=== PATIENT | female | born 1995 | race Caucasian/White ===

== ENCOUNTER 2017-03-22 06:50 | Emergency (ER) | payer SELFPAY ==
[~2017-03-22] VITALS: Ht 162.6 cm; Wt 59.9 kg
[2017-03-22 07:46] LABS: BILIRUBIN,URINE NEG (NEG); CLARITY,URINE HAZY; COLOR,URINE STRAW; GLUCOSE,URINE NEG (NEG)
[2017-03-22 07:47] LABS: BACTERIA,URINE FEW /HPF (0-FEW); NITRITE,URINE NEG (NEG); RBC,URINE 0 /HPF (0-2); SQUAMOUS EPITHELIAL CELL,UR MANY /LPF; UROBILINOGEN,URINE 0.2 mg/dL (0.2 mg/dL)
--- NOTE | 2017-03-22 08:03 | PHYS DOC ---
General Chief Complaint: BACK PAIN - NO INJURY Stated Complaint: BACK PAIN Time Seen by MD: 07:07 Source: patient Exam Limitations: no limitations Problems: History of Present Illness Initial Comments Patient is a 21-year-old female who comes in the ED complaining of right-sided flank pain. Patient states that for the past week or so she's had intermittent worsening right-sided flank pain. She denies any trauma or strenuous activity, she's also had frequency and hesitancy of urine with some darkening of the color she denies any motor changes. No fever chills sweats or myalgias no pre-arrival treatment patient has had kidney urinary tract infections in the past and symptoms seem similar to her. No nausea vomiting diarrhea or bowel changes. Patient also has pain at her umbilicus. Pains are sharp and intense at times of physical stress, heavy lifting and straining. She denies any pain at rest and when exacerbated symptoms always improved with rest. She denies any palpable mass but has been told it could be a hernia. No nausea vomiting she denies any trauma. ED vital signs are stable. Timing/Duration: week, getting worse Severity/Quality: moderate, aching Location: right flank Radiation: suprapubic Activities at Onset: physical activity, rest Prior Genitourinary Problems: similar symptoms Modifying Factors: worse with coughing, worse with defecating, worse with exercise, improves with lying down, worse with palpation, improves with rest Associated Symptoms: abdominal pain, lower back pain, polyuria, urinary frequency Allergies: Coded Allergies: No Known Drug Allergies (Unverified , 03/22/17) Past Medical History Medical History: other (anxiety, depression, UTI, back pain) Surgical History: noncontributory (wrist) Social History Smoker: cigarettes Alcohol: none Drugs: marijuana Review of Systems Constitutional: denies chills, denies diaphoresis, denies fever, denies malaise Respiratory: denies cough, denies shortness of breath Cardiovascular: denies chest pain, denies palpitations Gastrointestinal: see HPI Genitourinary: see HPI Musculoskeletal: see HPI Psychiatric/Neurological: denies headache, denies numbness, denies paresthesia Physical Exam General Appearance: WD/WN, no apparent distress Neck: non-tender, supple Cardiovascular/Respiratory: normal peripheral pulses, normal breath sounds Gastrointestinal: soft (nondistended, bowel sounds normal, negative Bardales and McBurney. Mild suprapubic tenderness noted no rebound or guarding. 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 Will tx UTI, await C/S. urine preg neg. I discussed prescription and [id number] medications. I discussed outpatient general surgical consultation if hernia symptoms worsen. I discussed signs and symptoms to monitor indications for return and the patient expressed agreement and understanding and her questions were answered. She was advised to discontinue tobacco marijuana abuse Departure Time of Disposition: 07:57 Disposition: 01 HOME, SELF-CARE Diagnosis: pyelonephritis R side, reducible <1cm umbilical he Condition: GOOD Patient Instructions: Pyelonephritis, Adult, [id number], Umbilical Herniorrhaphy Additional Instructions: Off work today, note given. Aggressive hydration with Gatorade or water. [id number] Tylenol and/or ibuprofen as needed. Warm compresses or heating pad to affected area 15 minutes 4-6 times daily followed by gentle stretching. No heavy lifting or strenuous activity until cleared by general surgeon and to avoid making umbilical hernia symptoms worse. Prescription: Bactrim DS, Pyridium 100 mg Take medications with food to avoid abdominal discomfort and nausea. No driving or operating machinery until the effect of the medications given in the emergency department are completely worn off. You will need to follow-up with a primary care doctor in 7-10 days for recheck of her symptoms and to review the urine culture and sensitivity report. You will also need to follow up with a general surgeon for consultation regarding or reducible small umbilical hernia. Per your request ED staff can provide you information regarding the [facility] closet as well as the [facility] to assist you with healthcare costs and access while you are uninsured. Return to ED with new or changing symptoms. ANDRÉS JERNIGAN DO Mar 22, 2017 08:03
[2017-03-22] MEDS ORDERED: PHEN100T82 PO (08:06)
[2017-03-22] MEDS ORDERED: SULF1TAB24 PO (08:06)
[2017-03-22] MEDS ORDERED: HYDROcodone/APAP 7.5/325MG 1 TAB TABLET PO ONE (08:10)
[2017-03-22] MEDS ORDERED: ONDANSETRON ODT 4 MG TAB.RAPDIS PO ONE (08:10)
[2017-03-22 08:15] VITALS: BP 107/66
== END 2017-03-22 08:19 | disposition home or self-care (01) ==
LOC: ER 06:50
DX: N12 Tubulo-interstitial nephritis, not specified as acute or chronic (principal); K42.9 Umbilical hernia without obstruction or gangrene; F41.9 Anxiety disorder, unspecified; F32.9 Major depressive disorder, single episode, unspecified; F17.210 Nicotine dependence, cigarettes, uncomplicated; F12.10 Cannabis abuse, uncomplicated; Z87.440 Personal history of urinary (tract) infections
CPT/HCPCS: 81001; 81025; 87086; 99284; Q0162

== ENCOUNTER 2018-04-15 18:08 | Emergency (ER) | payer OTHER ==
[~2018-04-15] VITALS: Ht 162.6 cm; Wt 65.0 kg
[~2018-04-15 18:08] MED LIST: PHEN100T82 PO; SULF1TAB24 PO
[2018-04-15 18:45] LABS: BILIRUBIN,URINE NEG (NEG); CLARITY,URINE HAZY; COLOR,URINE STRAW; GLUCOSE,URINE NEG (NEG); NITRITE,URINE NEG (NEG); UROBILINOGEN,URINE 0.2 mg/dL (0.2 mg/dL)
[2018-04-15 18:46] LABS: BACTERIA,URINE FEW /HPF (0-FEW); SQUAMOUS EPITHELIAL CELL,UR FEW /LPF; WBC,URINE >40 /HPF (0-4)
[2018-04-15 18:56] LABS: BASO # 0.1 x10^3/uL (0.0-0.2); BASO % 1 % (0-3); EOS # 0.1 x10^3/uL (0.0-0.7); EOS % 1 % (0-3); HEMATOCRIT 40.6 % (36.0-47.0); HEMOGLOBIN 13.7 g/dL (12.0-15.5); LYMPH # 2.5 x10^3/uL (1.0-4.8); LYMPH % 23 % (24-48); MEAN CORPUSCULAR HEMOGLOBIN 29 pg (25-35); MEAN CORPUSCULAR HGB CONC 34 g/dL (31-37); MEAN CORPUSCULAR VOLUME 85 fL (79-100); MONO # 0.7 x10^3/uL (0.0-1.1); MONO % 6 % (0-9); NEUT # 7.8 x10^3uL (1.8-7.7); NEUT % 70 % (31-73); PLATELET COUNT 264 x10^3/uL (140-400); RED BLOOD COUNT 4.79 x10^6/uL (3.50-5.40); RED CELL DISTRIBUTION WIDTH 17.5 % (11.5-14.5); WHITE BLOOD COUNT 11.1 x10^3/uL (4.0-11.0)
[2018-04-15] MEDS ORDERED: IV NORMAL SALINE 1,000ML 1,000 ML IV ONE (19:00)
[2018-04-15] MEDS ORDERED: KETOROLAC 30 MG/ML VIAL. IV ONE (19:00)
--- NOTE | 2018-04-15 19:06 | PHYS DOC ---
Past History Past Medical History: Anxiety, Depression, UTI Past Surgical History: No Surgical History Alcohol Use: Occasionally Drug Use: Marijuana Adult General Chief Complaint Chief Complaint: FLANK PAIN HPI HPI 22-year-old female presents with 2 day history of left flank pain. Patient states that she started have some left flank cramping yesterday evening. She assumed was menstrual cramps that she is starting her menses. Throughout the day today, the patient thought it might be the same kind of cramping, but it has gotten worse throughout the day. She now has pain in the flank at the end of urination. She has had a history of frequent UTIs, but she states this does not feel like that. She's never had flank pain with her UTIs. She has not noticed a change in color or urine. She has no history of kidney stones. There is a family history. Her pain is an 8 out of 10. She is unable to find a comfortable position for very long. She denies fever or chills. Review of Systems Review of Systems Constitutional: Denies fever or chills [] Eyes: Denies change in visual acuity, redness, or eye pain [] HENT: Denies nasal congestion or sore throat [] Respiratory: Denies cough or shortness of breath [] Cardiovascular: No additional information not addressed in HPI [] GI: Denies abdominal pain, nausea, vomiting, bloody stools or diarrhea [] : Dysuria [] Musculoskeletal: Left flank pain[] Integument: Denies rash or skin lesions [] Neurologic: Denies headache, focal weakness or sensory changes [] Endocrine: Denies polyuria or polydipsia [] All other systems were reviewed and found to be within normal limits, except as documented in this note. Current Medications Current Medications Current Medications Medications (Trade) Dose Ordered Sig/Kalyan Start Time Stop Time Status Last Admin Dose Admin Ketorolac Tromethamine (Toradol 30mg Vial) 30 mg 1X ONCE 04/15/18 19:00 04/15/18 19:01 UNV Sodium Chloride 1,000 ml @ 1,000 mls/hr 1X ONCE 04/15/18 19:00 04/15/18 19:59 Allergies Allergies Allergies Coded Allergies Type Severity Reaction Last Updated Verified No Known Drug Allergies 03/22/17 No Physical Exam Physical Exam Constitutional: Well developed, well nourished, no acute distress, uncomfortable , non-toxic appearance. [] HENT: Normocephalic, atraumatic, bilateral external ears normal, oropharynx moist, no oral exudates, nose normal. [] Eyes: PERRLA, EOMI, conjunctiva normal, no discharge. [] Neck: Normal range of motion, no tenderness, supple, no stridor. [] Cardiovascular:Heart rate regular rhythm, no murmur [] Lungs & Thorax: Bilateral breath sounds clear to auscultation [] Abdomen: Bowel sounds normal, soft, no tenderness, no masses, no pulsatile masses. [] Skin: Warm, dry, no erythema, no rash. [] Back: CVA tenderness on the left, moderate. [] Extremities: No tenderness, no cyanosis, no clubbing, ROM intact, no edema. [] Neurologic: Alert and oriented X 3, normal motor function, normal sensory function, no focal deficits noted. [] Psychologic: Affect normal, judgement normal, mood normal. [] Current Patient Data Vital Signs Vital Signs Date Time Temp Pulse Resp B/P (MAP) Pulse Ox O2 Delivery O2 Flow Rate FiO2 04/15/18 18:51 98.2 69 20 99 Room Air Lab Results Laboratory Tests Test 04/15/18 18:26 04/15/18 18:38 Urine Collection Type Unknown Urine Color Straw Urine Clarity Hazy Urine pH 6.5 Urine Specific [place] 1.015 Urine Protein Neg (NEG-TRACE) Urine Glucose (UA) Neg mg/dL (NEG) Urine Ketones (Stick) Neg mg/dL (NEG) Urine Blood Mod (NEG) Urine Nitrite Neg (NEG) Urine Bilirubin Neg (NEG) Urine Urobilinogen Dipstick 0.2 mg/dL (0.2 mg/dL) Urine Leukocyte Esterase Small (NEG) Urine RBC 11-20 /HPF (0-2) Urine WBC >40 /HPF (0-4) Urine Squamous Epithelial Cells Few /LPF Urine Bacteria Few /HPF (0-FEW) White Blood Count 11.1 x10^3/uL (4.0-11.0) H Red Blood Count 4.79 x10^6/uL (3.50-5.40) Hemoglobin 13.7 g/dL (12.0-15.5) Hematocrit 40.6 % (36.0-47.0) Mean Corpuscular Volume 85 fL (79-100) Mean Corpuscular Hemoglobin 29 pg (25-35) Mean Corpuscular Hemoglobin Concent 34 g/dL (31-37) Red Cell Distribution Width 17.5 % (11.5-14.5) H Platelet Count 264 x10^3/uL (140-400) Neutrophils (%) (Auto) 70 % (31-73) Lymphocytes (%) (Auto) 23 % (24-48) L Monocytes (%) (Auto) 6 % (0-9) Eosinophils (%) (Auto) 1 % (0-3) Basophils (%) (Auto) 1 % (0-3) Neutrophils # (Auto) 7.8 x10^3uL (1.8-7.7) H Lymphocytes # (Auto) 2.5 x10^3/uL (1.0-4.8) Monocytes # (Auto) 0.7 x10^3/uL (0.0-1.1) Eosinophils # (Auto) 0.1 x10^3/uL (0.0-0.7) Basophils # (Auto) 0.1 x10^3/uL (0.0-0.2) EKG EKG [] Radiology/Procedures Radiology/Procedures [] Impressions: EXAM: CT ABDOMEN/PELVIS WITHOUT CONTRAST. HISTORY: Left flank pain. TECHNIQUE: Computed tomography of the abdomen and pelvis was performed without intravenous contrast. COMPARISON: None. FINDINGS: Lung windows through the visualized portions of the bases reveal minimal atelectasis. Bone windows reveal no suspicious lesions. There is urothelial thickening along the left ureter. There are no left renal or ureteral calculi. A right renal calculus measures 3 mm. There is also mild urothelial thickening on the right. There is mild diffuse bladder wall thickening. A small amount of free pelvic fluid is likely physiologic. The uterus and ovaries are unremarkable by noncontrast CT. The appendix is not inflamed. There is no small bowel obstruction. The liver, gallbladder, pancreas, adrenal glands and spleen are unremarkable. There are no pathologically enlarged lymph nodes. IMPRESSION: 1. Urothelial thickening along the left greater than right ureters. Bladder wall thickening. Correlate for ascending infection. No hydronephrosis. 2. 3 mm right renal calculus. No ureteral calculi. *One or more of the following individualized dose reduction techniques were utilized for this examination: 1. Automated exposure control. 2. Adjustment of the mA and/or kV according to patient size. 3. Use of iterative reconstruction technique. Electronically signed by: Lesa Rodriguez MD (04/15/2018 8:18 PM) [facility] DICTATED AND SIGNED BY: STELLA RODRIGUEZ MD DATE: 04/15/182013 CC: XIN CHAUDHARI DO; ANTHONY GARY ~ Course & Med Decision Making Course & Med Decision Making Pertinent Labs and Imaging studies reviewed. (See chart for details) Patient appears to have a complicated bladder section that is starting to move up the ureters. I will treat her as though it is uncomplicated pyelonephritis. I 'll give 1 g of Rocephin in the ED followed by 5 days of levofloxacin 750 mg at home. [] Dragon Disclaimer Dragon Disclaimer This electronic medical record was generated, in whole or in part, using a voice recognition dictation system. Departure Departure: Referrals: ANTHONY GARY (PCP) Scripts Levofloxacin (LEVOFLOXACIN) 750 Mg Tablet 1 TAB PO DAILY, #5 TAB Prov: XIN CHAUDHARI DO 04/15/18 XIN CHAUDHARI DO Apr 15, 2018 19:06
[2018-04-15 19:10] LABS: ALBUMIN 4.2 g/dL (3.4-5.0); ALBUMIN/GLOBULIN RATIO 1.1 (1.0-1.7); CALCIUM 9.6 mg/dL (8.5-10.1); GFR 68.1; POTASSIUM 3.9 mmol/L (3.5-5.1); TOTAL BILIRUBIN 0.2 mg/dL (0.2-1.0); TOTAL PROTEIN 8.2 g/dL (6.4-8.2)
[2018-04-15 19:33] LABS: U PREG PATIENT NEGATIVE (NEG)
--- NOTE | 2018-04-15 20:21 | RAD ---
EXAM: CT ABDOMEN/PELVIS WITHOUT CONTRAST. HISTORY: Left flank pain. TECHNIQUE: Computed tomography of the abdomen and pelvis was performed without intravenous contrast. COMPARISON: None. FINDINGS: Lung windows through the visualized portions of the bases reveal minimal atelectasis. Bone windows reveal no suspicious lesions. There is urothelial thickening along the left ureter. There are no left renal or ureteral calculi. A right renal calculus measures 3 mm. There is also mild urothelial thickening on the right. There is mild diffuse bladder wall thickening. A small amount of free pelvic fluid is likely physiologic. The uterus and ovaries are unremarkable by noncontrast CT. The appendix is not inflamed. There is no small bowel obstruction. The liver, gallbladder, pancreas, adrenal glands and spleen are unremarkable. There are no pathologically enlarged lymph nodes. IMPRESSION: 1. Urothelial thickening along the left greater than right ureters. Bladder wall thickening. Correlate for ascending infection. No hydronephrosis. 2. 3 mm right renal calculus. No ureteral calculi. *One or more of the following individualized dose reduction techniques were utilized for this examination: 1. Automated exposure control. 2. Adjustment of the mA and/or kV according to patient size. 3. Use of iterative reconstruction technique. Electronically signed by: Lesa Rodriguez MD (04/15/2018 8:18 PM) [facility]
[2018-04-15] MEDS ORDERED: cefTRIAXone SODIUM 1 GM VIAL IV ONE (20:54)
[2018-04-15] MEDS ORDERED: IV NORMAL SALINE 50ML 50 ML ONE (20:54)
[2018-04-15] MEDS ORDERED: ONDANSETRON PF 4 MG/2 ML VIAL. IV ONE (21:15)
[2018-04-15] MEDS ORDERED: MORPHINE SULFATE 2 MG/ML DISP.SYRIN. IV ONE (21:15)
[2018-04-15] MEDS ORDERED: LEVO750T5 PO (21:16)
[2018-04-15 21:23] VITALS: BP 115/77
== END 2018-04-15 21:40 | disposition home or self-care (01) ==
LOC: ER 18:08
DX: N12 Tubulo-interstitial nephritis, not specified as acute or chronic (principal); N20.0 Calculus of kidney; Z87.440 Personal history of urinary (tract) infections
CPT/HCPCS: 36415; 74176; 80053; 81001; 81025; 85025; 87086; 96365; 96375; 99285; J0696; J1885; J2270; J2405; J7030

== ENCOUNTER 2018-11-15 22:18 | Emergency (ER) | payer OTHER ==
[~2018-11-15] VITALS: Ht 162.6 cm; Wt 67.0 kg
[2018-11-15 22:18] VITALS: BP 133/80
[~2018-11-15 22:18] MED LIST changes: +LEVO750T5 PO
[2018-11-15] MEDS ORDERED: D-ME118S2 PO (22:43)
[2018-11-15] MEDS ORDERED: MELO7.5T29 PO (22:43)
[2018-11-15] MEDS ORDERED: AMOX500C PO (22:43)
--- NOTE | 2018-11-15 22:43 | PHYS DOC ---
Past History Past Medical History: Anxiety, Depression, UTI Past Surgical History: No Surgical History Smoking: Cigarettes Alcohol Use: Occasionally Drug Use: Marijuana Adult General Chief Complaint Chief Complaint: SORE THROAT HPI HPI Patient is a 23-year-old female who presents with sore throat, right ear d iscomfort, and a headache. This has been present for the past 5 days to a week. Patient was exposed to sick family members who had similar symptoms. The family members' strep screens were negative. Patient notes that she has some sinus congestion and a cough, worse with laying down. She felt hot several days ago but has not taken her own temperature. She has tried Excedrin Migraine without any significant relief.[] Review of Systems Review of Systems Constitutional: Denies chills or weight loss [] Eyes: Denies change in visual acuity, redness, or eye pain [] HENT: See history of present illness[] Respiratory: Denies shortness of breath [] Cardiovascular: No chest pain or palpitations[] GI: Denies abdominal pain, nausea, vomiting, bloody stools or diarrhea [] : Denies dysuria or hematuria [] Musculoskeletal: Denies back pain or joint pain [] Integument: Denies rash or skin lesions [] Neurologic: Denies focal weakness or sensory changes, notes that she has a headache, similar to her usual chronic migraine, not worst headache of life. [] Endocrine: Denies polyuria or polydipsia [] All other systems were reviewed and found to be within normal limits, except as documented in this note. Allergies Allergies Allergies Coded Allergies Type Severity Reaction Last Updated Verified No Known Drug Allergies 03/22/17 No Physical Exam Physical Exam Constitutional: Well developed, well nourished, no acute distress, non-toxic appearance. [] HENT: Normocephalic, atraumatic, bilateral external ears normal, TMs are clear, oropharynx moist, no oral exudates, uvula is midline, nose normal. [] Eyes: PERRLA, EOMI, conjunctiva normal, no discharge. [] Neck: Normal range of motion, no tenderness, supple, no stridor. [] Cardiovascular:Heart rate regular rhythm, no murmur [] Lungs & Thorax: Bilateral breath sounds clear to auscultation [] Abdomen: Bowel sounds normal, soft, no tenderness, no hepato-or splenomegaly, no pulsatile masses. [] Skin: Warm, dry, no erythema, no rash. [] Back: No tenderness, no CVA tenderness. [] Extremities: No tenderness, no cyanosis, no clubbing, ROM intact, no edema. [] Neurologic: Alert and oriented X 3, normal motor function, normal sensory function, no focal deficits noted. [] Psychologic: Affect normal, judgement normal, mood normal. [] EKG EKG [] Radiology/Procedures Radiology/Procedures [] Course & Med Decision Making Course & Med Decision Making Pertinent Labs and Imaging studies reviewed. (See chart for details) Medical decision making: Patient with upper respiratory infection symptoms. There is no evidence of meningitis, encephalitis, peritonsillar abscess, otitis media, mastoiditis, pneumonia, nor other significant systemic illness. We will attempt symptomatic treatment but prescribed when necessary antibiotics if she is not doing better in 48 hours with the symptomatic care.[] Dragon Disclaimer Dragon Disclaimer This electronic medical record was generated, in whole or in part, using a voice recognition dictation system. Departure Departure: Impression: Primary Impression: Upper respiratory infection Disposition: 01 HOME, SELF-CARE Condition: IMPROVED Referrals: ANTHONY GARY (PCP) Follow-up in 2 days Patient Instructions: Upper Respiratory Infection, Adult Additional Instructions: Drink plenty of fluids. Follow-up with your regular doctor in 2 days. If not doing better in 2 days with the symptomatic treatment, the promethazine DM and meloxicam, start the antibiotics as directed. Return to the ER if worsening discomfort, difficulty breathing, or any other concerns. Scripts Amoxicillin (AMOXICILLIN) 500 Mg Capsule 1 CAP PO TID for pharyngitis, #30 CAP Prov: STEPHIE ALTAMIRANO DO 11/15/18 D-Methorphan Hb/Prometh Hcl (PROMETHAZINE-DM SYRUP) 118 Ml Syrup 5 ML PO PRN Q4HRS for CONGESTION, #120 ML Prov: STEPHIE ALTAMIRANO DO 11/15/18 Meloxicam (MELOXICAM) 7.5 Mg Tablet 7.5 MG PO DAILY for PAIN, #20 TAB Prov: STEPHIE ALTAMIRANO DO 11/15/18 Problem Qualifiers Primary Impression: Upper respiratory infection URI type: unspecified URI Qualified Codes: J06.9 - Acute upper respiratory infection, unspecified STEPHIE ALTAMIRANO DO November 15, 2018 22:43
== END 2018-11-15 22:48 | disposition home or self-care (01) ==
LOC: ER 22:18
DX: J06.9 Acute upper respiratory infection, unspecified (principal); F41.9 Anxiety disorder, unspecified; F32.9 Major depressive disorder, single episode, unspecified; F17.210 Nicotine dependence, cigarettes, uncomplicated; Z87.440 Personal history of urinary (tract) infections
CPT/HCPCS: 99283

== ENCOUNTER 2019-06-30 13:43 | Emergency (ER) | payer SELFPAY ==
[~2019-06-30] VITALS: Ht 162.6 cm; Wt 61.7 kg
[~2019-06-30 13:43] MED LIST changes: +AMOX500C PO; +MELO7.5T29 PO; +PROM118S9 PO
[2019-06-30 14:07] VITALS: BP 114/68
--- NOTE | 2019-06-30 14:11 | PHYS DOC ---
Past History Past Medical History: Anxiety, Depression, UTI Past Surgical History: No Surgical History Smoking: Cigarettes Alcohol Use: Occasionally Drug Use: Marijuana Adult General Chief Complaint Chief Complaint: ABDOMINAL PAIN HPI HPI Patient is a 23-year-old female with midline lower abdominal pain for the past week. It has been getting worse over time. Patient started her menstrual period When this discomfort started. The menses is lightening up, however the pain is getting worse. She had frequency of urination at the onset. This is similar to previous urinary tract infections. She denies any back pain or flank pain like pyelonephritis symptoms in the past. Denies any fever. Notes that she has had some diarrhea without blood in the stool. There is no sick family. She denies any vaginal discharge. No previous abdominal surgeries. She did get relief with acetaminophen but has run out. She denies any hematuria. Pain is moderate to se osman in intensity. There has been no migration of the pain.[] Review of Systems Review of Systems Constitutional: Denies fever or chills [] Eyes: Denies change in visual acuity, redness, or eye pain [] HENT: Denies nasal congestion or sore throat [] Respiratory: Denies cough or shortness of breath [] Cardiovascular: No chest pain or palpitations[] GI: Denies abdominal pain, nausea, vomiting, bloody stools or diarrhea [] : See history of present illness[] Musculoskeletal: Denies back pain or joint pain [] Integument: Denies rash or skin lesions [] Neurologic: Denies headache, focal weakness or sensory changes [] Endocrine: Denies polyuria or polydipsia [] All other systems were reviewed and found to be within normal limits, except as documented in this note. Allergies Allergies Allergies Coded Allergies Type Severity Reaction Last Updated Verified No Known Drug Allergies 03/22/17 No Physical Exam Physical Exam Constitutional: Well developed, well nourished, no acute distress, non-toxic appearance. [] HENT: Normocephalic, atraumatic, bilateral external ears normal, oropharynx moist, no oral exudates, nose normal. [] Eyes: PERRLA, EOMI, conjunctiva normal, no discharge. [] Neck: Normal range of motion, no tenderness, supple, no stridor. [] Cardiovascular:Heart rate regular rhythm, no murmur [] Lungs & Thorax: Bilateral breath sounds clear to auscultation [] Abdomen: Bowel sounds normal, soft, mild suprapubic tenderness, no rebound, no guarding, no rigidity, able to sit up and lie back without any difficulty, no masses, no pulsatile masses. [] Skin: Warm, dry, no erythema, no rash. [] Back: No tenderness, no CVA tenderness. [] Extremities: No tenderness, no cyanosis, no clubbing, ROM intact, no edema. [] Neurologic: Alert and oriented X 3, normal motor function, normal sensory function, no focal deficits noted. [] Psychologic: Affect normal, judgement normal, mood normal. [] EKG EKG [] Radiology/Procedures Radiology/Procedures [] Course & Med Decision Making Course & Med Decision Making Pertinent Labs and Imaging studies reviewed. (See chart for details) Emergency department course: Patient arrived, was placed in bed, and tolerated exam well. She provided urine sample. She was given medicine for pain. After return of laboratory studies, these were discussed with the patient voiced understanding. All questions were answered. She was discharged in improved condition. Medical decision making: There is no evidence of pyelonephritis, no nausea or vomiting. She has urinary tract infection and will treat her with oral outpatient antibiotics. No evidence of systemic toxicity. No evidence of appendicitis, cholecystitis, nor pancreatitis on history or exam.[] Dragon Disclaimer Dragon Disclaimer This electronic medical record was generated, in whole or in part, using a voice recognition dictation system. Departure Departure: Impression: Primary Impression: Urinary tract infection Disposition: 01 HOME, SELF-CARE Condition: IMPROVED Referrals: ANTHONY GARY (PCP) Follow-up in 2 days Patient Instructions: Urinary Tract Infection Additional Instructions: Drink plenty of fluids. Follow-up with your regular doctor. Take the medication as prescribed. Return to the ER if worsening pain, unable to tolerate liquids, or any other concerns. Scripts Phenazopyridine Hcl (PYRIDIUM) 200 Mg Tablet 1 TAB PO TID for urinary discomfort for 2 Days, #6 TAB 0 Refills Prov: STEPHIE ALTAMIRANO DO 06/30/19 Meloxicam (MELOXICAM) 7.5 Mg Tablet 7.5 MG PO DAILY for PAIN, #20 TAB Prov: STEPHIE ALTAMIRANO DO 06/30/19 Cephalexin (KEFLEX) 500 Mg Capsule 500 MG PO QID for UTI for 10 Days, #40 CAP Prov: STEPHIE ALTAMIRANO DO 06/30/19 Problem Qualifiers Primary Impression: Urinary tract infection Urinary tract infection type: site unspecified Hematuria presence: without hematuria Qualified Codes: N39.0 - Urinary tract infection, site not specified STEPHIE ALTAMIRANO DO Jun 30, 2019 14:11
[2019-06-30] MEDS: IBUPROFEN 600 MG TABLET. PO ONE (14:15)
[2019-06-30 14:22] LABS: BACTERIA,URINE FEW /HPF (0-FEW); BILIRUBIN,URINE NEG (NEG); CLARITY,URINE HAZY; COLOR,URINE YELLOW; GLUCOSE,URINE NEG (NEG); NITRITE,URINE NEG (NEG); SQUAMOUS EPITHELIAL CELL,UR MOD /LPF
[2019-06-30] MEDS ORDERED: MELO7.5T29 PO (14:34)
[2019-06-30] MEDS ORDERED: CEPH-264 PO (14:34)
[2019-06-30] MEDS ORDERED: PHEN-318 PO (14:34)
[2019-06-30 14:42] LABS: U PREG PATIENT NEGATIVE (NEG)
== END 2019-06-30 14:45 | disposition home or self-care (01) ==
LOC: ER 13:43
DX: N39.0 Urinary tract infection, site not specified (principal); F41.9 Anxiety disorder, unspecified; F32.9 Major depressive disorder, single episode, unspecified; F17.210 Nicotine dependence, cigarettes, uncomplicated; Z87.440 Personal history of urinary (tract) infections
CPT/HCPCS: 81001; 81025; 87086; 99284

== ENCOUNTER 2019-09-27 18:44 | Emergency (ER) | payer OTHER ==
[~2019-09-27] VITALS: Ht 167.6 cm; Wt 62.0 kg
[~2019-09-27 18:44] MED LIST changes: +CEPH-264 PO; +PHEN-318 PO
[2019-09-27 19:01] VITALS: BP 115/71
--- NOTE | 2019-09-27 19:13 | PHYS DOC ---
Past History Past Medical History: No Pertinent History Past Surgical History: Other Smoking: Cigarettes Alcohol Use: None Drug Use: None Adult General Chief Complaint Chief Complaint: ANIMAL BITE .. " One of our Pit Bulls bit my Rt. arm during a dog fight.. " HPI HPI Patient is a 24 year old female who presents with above hx and complaints puncture wound to right forearm. Injury occurred while attempting to separate pit bulls that were fighting. Reportedly dog vaccination are up-to-date. They are healthy. Patient wound appears to be puncture and surrounding contusion. Distal neurovascular intact. Patient is right-hand dominant. Patient does not remember last tetanus update. Patient denies any history immunosuppression. No history of travel. This is the same incident where her significant partner ( Don Delgado ) was bit the Pit Bull dogs. Review of Systems Review of Systems Constitutional: Denies fever or chills [] Eyes: Denies change in visual acuity, redness, or eye pain [] HENT: Denies nasal congestion or sore throat [] Respiratory: Denies cough or shortness of breath [] Cardiovascular: No additional information not addressed in HPI [] GI: Denies abdominal pain, nausea, vomiting, bloody stools or diarrhea [] : Denies dysuria or hematuria [] Musculoskeletal: Denies back pain or joint pain [The patient complains of dog bite to right forearm Integument: Denies rash or skin lesions [] Neurologic: Denies headache, focal weakness or sensory changes [] Endocrine: Denies polyuria or polydipsia [] All other systems were reviewed and found to be within normal limits, except as documented in this note. Family History Family History Noncontributory Current Medications Current Medications See nursing for home meds Allergies Allergies Allergies Coded Allergies Type Severity Reaction Last Updated Verified No Known Drug Allergies 03/22/17 No Physical Exam Physical Exam Constitutional: Well developed, well nourished, no acute distress, non-toxic appearance. [] HENT: Normocephalic, atraumatic, bilateral external ears normal, oropharynx moist, no oral exudates, nose normal. [] Eyes: PERRLA, EOMI, conjunctiva normal, no discharge. [] Neck: Normal range of motion, no tenderness, supple, no stridor. [] Cardiovascular:Heart rate regular rhythm, no murmur [] Lungs & Thorax: Bilateral breath sounds though apexes few scattered wheezes auscultation [] Abdomen: Bowel sounds normal, soft, no tenderness, no masses, no pulsatile masses. [] Skin: Warm, dry, no erythema, no rash. [] Back: No tenderness, no CVA tenderness. [] Extremities: No tenderness, no cyanosis, no clubbing, ROM intact, no edema. [] Dog bite right forearm.-As per history of present illness Neurologic: Alert and oriented X 3, normal motor function, normal sensory function, no focal deficits noted. [] Psychologic: Affect normal, judgement normal, mood normal. [] Current Patient Data Vital Signs Vital Signs Date Time Temp Pulse Resp B/P (MAP) Pulse Ox O2 Delivery O2 Flow Rate FiO2 09/27/19 19:01 99.3 104 18 115/71 (86) 98 Room Air EKG EKG [] Radiology/Procedures Radiology/Procedures [][address] [address] IMAGING REPORT Signed PATIENT: CODIE KENNEDY ACCOUNT: [id number] : 1995 LOCATION: ER AGE: 24 SEX: F EXAM STATUS: REG ER ORD. PHYSICIAN: JOSEFA ROTH MD REASON: DOG BITE DISTAL FOREARM PROCEDURE: FOREARM RIGHT Exam: Right forearm 2 views INDICATION: Dog bite, distal forearm TECHNIQUE: Frontal and lateral views of the right forearm Comparisons: None FINDINGS: Bone mineralization is normal. No acute or healed fractures. Soft tissues are unremarkable. Joint spaces are well-maintained. IMPRESSION: No acute osseous abnormality. No radiopaque foreign body. Electronically signed by: Betty Albright MD (09/27/2019 8:27 PM) [id number] DICTATED AND SIGNED BY: BETTY ALBRIGHT MD DATE: 09/27/192026 CC: JOSEFA ROTH MD; ANTHONY GARY ~ Course & Med Decision Making Course & Med Decision Making Pertinent Labs and Imaging studies reviewed. (See chart for details) Procedure note- Fidencio cleaned with soap and water. Dressing applied. Patient received a gram of Rocephin and tetanus was updated. Patient take Augmentin 875 twice a day. Follow-up primary care. Return if any concerns. Patient monitor for infection. Pt. not to wear rings on Rt. hand in case of secondary edema. Impression- 1. Dog bite [] Dragon Disclaimer Dragon Disclaimer This electronic medical record was generated, in whole or in part, using a voice recognition dictation system. Departure Departure: Disposition: HOME/RESIDENCE PRIOR TO ADM Condition: STABLE Referrals: ANTHONY GARY (PCP) Scripts Amoxicillin/Potassium Clav (AUGMENTIN 875-125 TABLET) 1 Each Tablet 1 TAB PO BID for dog bite for 7 Days, #14 TAB 0 Refills Prov: JOSEFA ROTH MD 09/27/19 [place] Disclaimer This chart was dictated in whole or in part using Voice Recognition software in a busy, high-work load, and often noisy Emergency Department environment. It may contain unintended and wholly unrecognized errors or omissions. Dragon Disclaimer This chart was dictated in whole or in part using Voice Recognition software in a busy, high-work load, and often noisy Emergency Department environment. It may contain unintended and wholly unrecognized errors or omissions. JOSEFA ROTH MD Sep 27, 2019 19:13
[2019-09-27] MEDS ORDERED: ACETAMINOPHEN 500 MG TABLET PO ONE (20:00)
[2019-09-27] MEDS ORDERED: DIPH,PERTUSS(ACELL),TET VAC/PF 0.5 ML SYRINGE. VAX IM ONE (20:00)
[2019-09-27] MEDS ORDERED: cefTRIAXone IM 1 GM VIAL IM ONE (20:00)
[2019-09-27] MEDS ORDERED: AMOX1TAB61 PO (20:03)
--- NOTE | 2019-09-27 20:30 | RAD ---
Exam: Right forearm 2 views INDICATION: Dog bite, distal forearm TECHNIQUE: Frontal and lateral views of the right forearm Comparisons: None FINDINGS: Bone mineralization is normal. No acute or healed fractures. Soft tissues are unremarkable. Joint spaces are well-maintained. IMPRESSION: No acute osseous abnormality. No radiopaque foreign body. Electronically signed by: Betty Marquis MD (09/27/2019 8:27 PM) [id number]
== END 2019-09-27 21:20 | disposition home or self-care (01) ==
LOC: ER 18:44
DX: S51.851A Open bite of right forearm, initial encounter (principal); F17.210 Nicotine dependence, cigarettes, uncomplicated; W54.0XXA Bitten by dog, initial encounter; Y93.89 Activity, other specified; Y92.89 Other specified places as the place of occurrence of the external cause; Y99.8 Other external cause status
CPT/HCPCS: 73090; 90471; 90715; 96372; 99284; J0696

== ENCOUNTER 2020-01-08 19:24 | Emergency (ER) | payer MEDICAID, OTHER ==
[~2020-01-08] VITALS: Ht 167.6 cm; Wt 57.2 kg
[~2020-01-08 19:24] MED LIST changes: +AMOX1TAB61 PO; +PROM118S10 PO; -PROM118S9 PO
[2020-01-08 19:41] VITALS: BP 126/79
[2020-01-08] MEDS ORDERED: BUTALB/APAP/CAFEIN 50/325/40MG TABLET. PO ONE (19:45)
[2020-01-08] MEDS ORDERED: ONDANSETRON ODT 4 MG TAB.RAPDIS PO ONE (19:45)
[2020-01-08] MEDS ORDERED: DEXAMETHASONE SOD PHOS 10 MG/ML VIAL IM ONE (19:45)
[2020-01-08] MEDS ORDERED: ONDA4TAB12 PO (19:48)
[2020-01-08] MEDS ORDERED: BUTA1TAB23 PO (19:48)
--- NOTE | 2020-01-08 19:48 | PHYS DOC ---
Past History Past Medical History: Anxiety, Depression Past Surgical History: Other Smoking: Cigarettes Alcohol Use: Rarely Drug Use: None General Adult EDM: Chief Complaint: HEADACHE HPI: HPI: Patient is a [age] year old [sex] who presents with [] Review of Systems: Review of Systems: Constitutional: Denies fever or chills Eyes: Denies redness or eye pain HENT: Denies nasal congestion or sore throat Respiratory: Denies cough or shortness of breath Cardiovascular: Denies chest pain or palpitations GI: Denies abdominal pain, nausea, or vomiting : Denies dysuria or hematuria Musculoskeletal: Denies back pain or joint pain Integument: Denies rash or skin lesions Neurologic: Denies headache, focal weakness or sensory changes Complete systems were reviewed and found to be within normal limits, except as documented in this note. Allergies: Allergies: Allergies Coded Allergies Type Severity Reaction Last Updated Verified No Known Drug Allergies 03/22/17 No Physical Exam: PE: Constitutional: Well developed, well nourished, no acute distress, non-toxic appearance HENT: Normocephalic, atraumatic, oropharynx moist Eyes: PERRL, EOMI, conjunctiva normal, no discharge Neck: Normal range of motion, no tenderness, supple Cardiovascular: Heart rate normal, regular rhythm Lungs & Thorax: Bilateral breath sounds clear to auscultation, no wheezing Abdomen: Soft, no tenderness Skin: Warm, dry, no erythema, no rash Back: No tenderness, no CVA tenderness Extremities: No tenderness, ROM intact, no edema Neurologic: Alert and oriented X 3, normal motor function, normal sensory function, no focal deficits noted Psychologic: Affect normal, judgment normal Current Patient Data: Vital Signs: Vital Signs Date Time Temp Pulse Resp B/P (MAP) Pulse Ox O2 Delivery O2 Flow Rate FiO2 01/08/20 19:41 98.2 88 16 126/79 (95) 98 Room Air EKG: EKG: [] Radiology/Procedures: Radiology/Procedures: [] Course & Med Decision Making: Course & Med Decision Making Patient stable for discharge with outpatient follow-up with PCP. Discussed findings and plan with patient and family, who acknowledge understanding and agreement. Siddhartha Disclaimer: Siddhartha Disclaimer: This electronic medical record was generated, in whole or in part, using a voice recognition dictation system. Departure Departure: Impression: Primary Impression: Headache Qualified Codes: R51 - Headache Disposition: 01 HOME/RESIDENCE PRIOR TO ADM Condition: STABLE Referrals: ANTHONY GARY (PCP) Patient Instructions: Headache, FAQs, Migraine Headache, [id number] Scripts Butalb/Acetaminophen/Caffeine ([id number] 50-325-40) 1 Each Tablet 1 EACH PO Q6HRS PRN for HEADACHE, #14 TAB Prov: STEVEN MONIQUE DO 01/08/20 Ondansetron (ONDANSETRON ODT) 4 Mg Tab.rapdis 1 TAB PO PRN Q6-8HRS PRN for NAUSEA, #16 TAB Prov: STEVEN MONIQUE DO 01/08/20 Justification of Admission: Justification of Admission: Justification of Admission Dx: N/A STEVEN MONIQUE DO Jan 08, 2020 19:48
== END 2020-01-08 20:06 | disposition home or self-care (01) ==
LOC: ER 19:24
DX: O26.891 Other specified pregnancy related conditions, first trimester (principal); R51 Headache; O21.9 Vomiting of pregnancy, unspecified; O99.331 Smoking (tobacco) complicating pregnancy, first trimester; Z3A.11 11 weeks gestation of pregnancy
CPT/HCPCS: 96372; 99283; J1100; Q0162

== ENCOUNTER 2020-01-16 05:02 | Emergency (ER) | payer MEDICAID ==
[~2020-01-16] VITALS: Ht 167.6 cm; Wt 57.2 kg
[~2020-01-16 05:02] MED LIST changes: +BUTA1TAB23 PO; +ONDA4TAB12 PO
[2020-01-16 05:05] VITALS: BP 107/75
--- NOTE | 2020-01-16 05:21 | PHYS DOC ---
Past History Past Medical History: Anxiety, Depression (ANDREZ CHENEY DO) Past Surgical History: Other (ANDREZ CHENEY DO) Smoking: Cigarettes Alcohol Use: Rarely Drug Use: None (ANDREZ CHENEY DO) General Adult EDM: Chief Complaint: ABDOMINAL PAIN IN HPI: HPI: Patient is a 24 year old female who presents for evaluation of moderate to severe sharp and sudden mid and lower abdominal discomfort that started at 3:40 AM today. Patient is approximately 12 to 13 weeks . Patient denies any vaginal bleeding or discharge. She had abdominal pain and diarrhea last week. Patient is scheduled to see an [employer] in Dr. Bardales's office later this morning. Patient is a 3 para 2. Patient is due date is August 04, 2020. Patient is in moderate distress on arrival. Patient states she is not had pain like this in this previously. Patient had an early sonogram she states many weeks ago (ANDREZ CHENEY DO) Review of Systems: Review of Systems: Constitutional: Denies fever or chills Eyes: Denies change in visual acuity HENT: Denies nasal congestion or sore throat Respiratory: Denies cough or shortness of breath Cardiovascular: Denies chest pain or edema GI: lower abdominal pain with nausea, no vomiting, no bloody stools, diarrhea last week Musculoskeletal: Denies back pain or joint pain Integument: Denies rash Neurologic: Denies headache, focal weakness or sensory changes Endocrine: Denies polyuria or polydipsia Lymphatic: Denies swollen glands Psychiatric: Denies depression or anxiety (ANDREZ CHENEY DO) Heart Score: Risk Factors: Risk Factors: DM, Current or recent (<one month) smoker, HTN, HLP, family history of CAD, obesity. Risk Scores: Score 0 - 3: 2.5% MACE over next 6 weeks - Discharge Home Score 4 - 6: 20.3% MACE over next 6 weeks - Admit for Clinical Observation Score 7 - 10: 72.7% MACE over next 6 weeks - Early Invasive Strategies (ANDREZ CHENEY DO) Allergies: Allergies: Allergies Coded Allergies Type Severity Reaction Last Updated Verified No Known Drug Allergies 03/22/17 No (ANDREZ CHENEY DO) Physical Exam: PE: Constitutional: Well developed, well nourished, moderate distress, non-toxic appearance. [] HENT: Normocephalic, atraumatic, bilateral external ears normal, oropharynx moist, nose normal. [] Eyes: PERRL, EOMI, conjunctiva normal, no discharge. [] Neck: Normal range of motion, no tenderness, supple, no stridor. [] Cardiovascular:Heart rate tachy but regular rhythm, no murmur [] Lungs & Thorax: Bilateral breath sounds clear to auscultation [] Abdomen: Bowel sounds normal, soft, moderate suprapubic tenderness. [] Skin: Warm, dry, no erythema, no rash. [] Back: No tenderness, no CVA tenderness. [] Extremities: No tenderness, no cyanosis, ROM intact, no edema. [] Neurologic: Alert and oriented, normal motor function, no focal deficits noted. [] Psychologic: Affect normal, judgement normal, anxious mood. 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, tender suprapubic and right adnexal area, white discharge present, no bleeding, os closed [] (ANDREZ CHENEY DO) Current Patient Data: Labs: WET PREP Final YEAST NONE SEEN TRICHOMONAS NONE SEEN CLUE CELLS NONE SEEN WBCS OCCASIONAL RBCS NO RBCS SEEN SQUAMOUS EPS FEW Laboratory Tests Test 01/16/20 05:35 01/16/20 05:45 White Blood Count 9.9 x10^3/uL Red Blood Count 4.31 x10^6/uL Hemoglobin 13.6 g/dL Hematocrit 39.3 % Mean Corpuscular Volume 91 fL Mean Corpuscular Hemoglobin 32 pg Mean Corpuscular Hemoglobin Concent 35 g/dL Red Cell Distribution Width 12.9 % Platelet Count 197 x10^3/uL Neutrophils (%) (Auto) 72 % Lymphocytes (%) (Auto) 21 % Monocytes (%) (Auto) 6 % Eosinophils (%) (Auto) 1 % Basophils (%) (Auto) 1 % Neutrophils # (Auto) 7.1 x10^3uL Lymphocytes # (Auto) 2.1 x10^3/uL Monocytes # (Auto) 0.6 x10^3/uL Eosinophils # (Auto) 0.1 x10^3/uL Basophils # (Auto) 0.1 x10^3/uL Maternal Serum HCG Beta Subunit 03211 mIU/mL Sodium Level 135 mmol/L Potassium Level 3.6 mmol/L Chloride Level 101 mmol/L Carbon Dioxide Level 22 mmol/L Anion Gap 12 Blood Urea Nitrogen 9 mg/dL Creatinine 0.7 mg/dL Estimated GFR (Cockcroft-Gault) 101.1 BUN/Creatinine Ratio 13 Glucose Level 94 mg/dL Calcium Level 8.8 mg/dL Total Bilirubin 0.2 mg/dL Aspartate Amino Transf (AST/SGOT) 7 U/L Alanine Aminotransferase (ALT/SGPT) 16 U/L Alkaline Phosphatase 31 U/L Total Protein 7.2 g/dL Albumin 3.8 g/dL Albumin/Globulin Ratio 1.1 Urine Collection Type Unknown Urine Color Yellow Urine Clarity Clear Urine pH 7.0 Urine Specific [place] 1.025 Urine Protein Neg Urine Glucose (UA) Neg mg/dL Urine Ketones (Stick) Neg mg/dL Urine Blood Neg Urine Nitrite Neg Urine Bilirubin Neg Urine Urobilinogen Dipstick 0.2 mg/dL Urine Leukocyte Esterase Neg Urine RBC 1-2 /HPF Urine WBC 1-4 /HPF Urine Squamous Epithelial Cells Few /LPF Urine Amorphous Sediment Present /HPF Urine Bacteria Few /HPF Urine Mucus Slight /LPF Current Medications Medications (Trade) Dose Ordered Sig/[place] Route PRN Reason Start Time Stop Time Status Last Admin Dose Admin Acetaminophen (Tylenol) 650 mg 1X ONCE PO 01/16/20 06:00 01/16/20 06:01 DC 01/16/20 05:27 Sodium Chloride 1,000 ml @ 1,000 mls/hr 1X ONCE IV 01/16/20 06:00 01/16/20 06:59 01/16/20 05:28 Morphine Sulfate (Morphine 2mg Syringe) 2 mg 1X ONCE IV 01/16/20 06:30 01/16/20 06:31 DC 01/16/20 06:37 (IKE SALDIVAR MD) EKG: EKG: [] (ANDREZ CHENEY DO) Radiology/Procedures: Radiology/Procedures: [] (ANDREZ CHENEY DO) Radiology/Procedures: PROCEDURE: OB <14 WKS Obstetric ultrasound less than 14 weeks TECHNIQUE: Transabdominal transducer was utilized. HISTORY: Moderate lower abdominal pain, . FINDINGS: Anteverted uterus measures 14.4 x 7.1 x 8.9 cm. At the upper to mid uterus there is a single gestational sac and a single fetus with a heart rate of 160 bpm, and estimated sonographic gestational age of 12 weeks 0 days and date of delivery of July 30, 2020 based on the crown-rump length of 5.31 cm. This is concordant with the clinical gestational age 11 weeks 2 days. Along the inferior margin of the gestational sac at the lower uterus there is a hypoechoic subchorionic hemorrhage which measures 2.5 x 3.0 x 1.5 cm. Subjectively normal volume of amniotic fluid. anatomic evaluation was not performed due to the early gestational age. Cervical length 3.4 cm, no cervical funneling or shortening documented. It is too early for assessment of the placenta. No pelvic free fluid. Right ovary obscured by bowel gas shadowing. Left ovary measures 2.4 x 3.1 x 2.0 cm with a 1 cm follicle and intact left ovarian blood flow. IMPRESSION: Single living intrauterine with estimated sonographic gestational age of 12 weeks 0 days. There is a subchorionic hemorrhage present as described above. (IKE SALDIVAR MD) Course & Med Decision Making: Course & Med Decision Making Pertinent Labs and Imaging studies reviewed. (See chart for details) [] (ANDREZ CHENEY DO) Course & Med Decision Making 8:00 AM: The patient's condition remains stable. Care was assumed from Dr. Cheney at 6 AM shift change. The patient was reassessed at 8 AM, she has some mild suprapubic tenderness to palpation, the remainder of her abdomen is soft and nontender. There is no right lower quadrant tenderness to palpation. She has a previously scheduled appointment with her [employer] in the office today. I discussed importance of close follow-up, ultrasound findings, keeping her [employer] appointment, and return precautions in detail. The patient will be provided with a copy of the ultrasound report to give to her [employer]. (IKE SALDIVAR MD) Dragon Disclaimer: Dragon Disclaimer: This electronic medical record was generated, in whole or in part, using a voice recognition dictation system. 0600 Care of pt turned over to Dr. Saldivar at shift change. Blood work, urinalysis results pending. Patient states she was in severe pain so morphine 2 mg IV was given in addition to acetaminophen 650 mg p.o. (ANDREZ CHENEY DO) Departure Departure: Impression: Primary Impression: First trimester Additional Impression: Pelvic pain affecting Qualified Codes: O26.891 - Other specified related conditions, first trimester; R10.2 - Pelvic and perineal pain Disposition: HOME/RESIDENCE PRIOR TO ADM Condition: STABLE Referrals: ANTHONY GARY (PCP) Patient Instructions: Abdominal Pain During Scripts Acetaminophen With Codeine (TYLENOL WITH CODEINE #3 TABLET) 1 Each Tablet 1 TAB PO PRN Q6HRS PRN for pain MDD 4 Tablet(s), #15 TAB 0 Refills Prov: IKE SALDIVAR MD 01/16/20 Justification of Admission: Justification of Admission: Justification of Admission Dx: N/A (ANDREZ CHENEY DO) ANDREZ CHENEY DO Jan 16, 2020 05:21 IKE SALDIVAR MD Jan 16, 2020 06:44
[2020-01-16 05:54] LABS: BASO # 0.1 x10^3/uL (0.0-0.2); BASO % 1 % (0-3); EOS # 0.1 x10^3/uL (0.0-0.7); EOS % 1 % (0-3); HEMATOCRIT 39.3 % (36.0-47.0); HEMOGLOBIN 13.6 g/dL (12.0-15.5); LYMPH # 2.1 x10^3/uL (1.0-4.8); LYMPH % 21 % (24-48); MEAN CORPUSCULAR HEMOGLOBIN 32 pg (25-35); MEAN CORPUSCULAR HGB CONC 35 g/dL (31-37); MEAN CORPUSCULAR VOLUME 91 fL (79-100); MONO # 0.6 x10^3/uL (0.0-1.1); MONO % 6 % (0-9); NEUT # 7.1 x10^3uL (1.8-7.7); NEUT % 72 % (31-73); PLATELET COUNT 197 x10^3/uL (140-400); RED BLOOD COUNT 4.31 x10^6/uL (3.50-5.40); RED CELL DISTRIBUTION WIDTH 12.9 % (11.5-14.5); WHITE BLOOD COUNT 9.9 x10^3/uL (4.0-11.0)
[2020-01-16] MEDS ORDERED: ACETAMINOPHEN 325 MG TABLET PO ONE (06:00)
[2020-01-16] MEDS ORDERED: IV NORMAL SALINE 1,000ML 1,000 ML IV ONE (06:00)
[2020-01-16 06:03] LABS: CALCIUM 8.8 mg/dL (8.5-10.1); CREATININE 0.7 mg/dL (0.6-1.0); GFR 101.1; POTASSIUM 3.6 mmol/L (3.5-5.1)
[2020-01-16 06:08] LABS: ALBUMIN 3.8 g/dL (3.4-5.0); ALBUMIN/GLOBULIN RATIO 1.1 (1.0-1.7); TOTAL BILIRUBIN 0.2 mg/dL (0.2-1.0); TOTAL PROTEIN 7.2 g/dL (6.4-8.2)
[2020-01-16 06:20] LABS: CLARITY,URINE CLEAR; COLOR,URINE YELLOW
[2020-01-16 06:22] LABS: BILIRUBIN,URINE NEG (NEG); GLUCOSE,URINE NEG (NEG)
[2020-01-16 06:23] LABS: BACTERIA,URINE FEW /HPF (0-FEW); NITRITE,URINE NEG (NEG); SQUAMOUS EPITHELIAL CELL,UR FEW /LPF; UROBILINOGEN,URINE 0.2 mg/dL (0.2 mg/dL)
[2020-01-16 06:24] LABS: AMORPHOUS SEDIMENT,UR PRESENT /HPF
[2020-01-16] MEDS ORDERED: MORPHINE SULFATE 2 MG/ML DISP.SYRIN. IV ONE (06:30)
--- NOTE | 2020-01-16 07:53 | RAD ---
Obstetric ultrasound less than 14 weeks TECHNIQUE: Transabdominal transducer was utilized. HISTORY: Moderate lower abdominal pain, . FINDINGS: Anteverted uterus measures 14.4 x 7.1 x 8.9 cm. At the upper to mid uterus there is a single gestational sac and a single fetus with a heart rate of 160 bpm, and estimated sonographic gestational age of 12 weeks 0 days and date of delivery of July 30, 2020 based on the crown-rump length of 5.31 cm. This is concordant with the clinical gestational age 11 weeks 2 days. Along the inferior margin of the gestational sac at the lower uterus there is a hypoechoic subchorionic hemorrhage which measures 2.5 x 3.0 x 1.5 cm. Subjectively normal volume of amniotic fluid. anatomic evaluation was not performed due to the early gestational age. Cervical length 3.4 cm, no cervical funneling or shortening documented. It is too early for assessment of the placenta. No pelvic free fluid. Right ovary obscured by bowel gas shadowing. Left ovary measures 2.4 x 3.1 x 2.0 cm with a 1 cm follicle and intact left ovarian blood flow. IMPRESSION: Single living intrauterine with estimated sonographic gestational age of 12 weeks 0 days. There is a subchorionic hemorrhage present as described above. Electronically signed by: Marquise Martínez MD (01/16/2020 7:51 AM) [id number]
[2020-01-16] MEDS ORDERED: ACET-704 PO (08:03)
[2020-01-17 22:07] LABS: CHLAMYDIA PROBE Negative (Negative)
== END 2020-01-16 08:11 | disposition home or self-care (01) ==
LOC: ER 05:02
DX: O26.891 Other specified pregnancy related conditions, first trimester (principal); R10.2 Pelvic and perineal pain; O99.331 Smoking (tobacco) complicating pregnancy, first trimester; Z3A.12 12 weeks gestation of pregnancy
CPT/HCPCS: 36415; 76801; 80053; 81001; 84702; 85025; 86900; 86901; 87491; 87591; 96374; 99284; J2270; J7030; Q0111

== ENCOUNTER 2020-01-17 00:40 | Emergency (ER) | payer MEDICAID ==
[~2020-01-17] VITALS: Ht 167.6 cm; Wt 57.2 kg
[~2020-01-17 00:40] MED LIST changes: +ACET-704 PO
--- NOTE | 2020-01-17 01:11 | PHYS DOC ---
Past History Past Medical History: Anxiety, Depression, UTI Past Surgical History: No Surgical History Smoking: Cigarettes Alcohol Use: None Drug Use: None General Adult EDM: Chief Complaint: ABDOMINAL PAIN IN HPI: HPI: 24-year-old female G3, P2, roughly 12 weeks returns emergency room with continued abdominal pain. She was seen and discharged from this emergency room less than 24 hours ago. Her work-up at that time was reported to be negative. She had a wet prep, ultrasound, urinalysis, and basic labs. Her ultrasound showed a single intrauterine of 12 weeks with a subchorionic hemorrhage. See official report for more details. The patient did follow-up with her OB as directed earlier today. No other medications were treatments were prescribed. The patient has continued to have diffuse abdominal pain. The pain has become so severe that she has had vomiting. She only had a couple of hours of no pain throughout the rest of today. She denies fever chills. She is still concerned about urinary tract infection based on her history despite negative UA yesterday. No history of abdominal surgery. Review of Systems: Review of Systems: Constitutional: Denies fever or chills Eyes: Denies change in visual acuity HENT: Denies nasal congestion or sore throat Respiratory: Denies cough or shortness of breath Cardiovascular: Denies chest pain or edema GI: Diffuse abdominal pain, nausea, vomiting. Denies bloody stools or diarrhea : Denies dysuria Musculoskeletal: Denies back pain or joint pain Integument: Denies rash Neurologic: Denies headache, focal weakness or sensory changes Endocrine: Denies polyuria or polydipsia Lymphatic: Denies swollen glands Psychiatric: Denies depression or anxiety Heart Score: Risk Factors: Risk Factors: DM, Current or recent (<one month) smoker, HTN, HLP, family hist ory of CAD, obesity. Risk Scores: Score 0 - 3: 2.5% MACE over next 6 weeks - Discharge Home Score 4 - 6: 20.3% MACE over next 6 weeks - Admit for Clinical Observation Score 7 - 10: 72.7% MACE over next 6 weeks - Early Invasive Strategies Allergies: Allergies: Allergies Coded Allergies Type Severity Reaction Last Updated Verified No Known Drug Allergies 03/22/17 No Physical Exam: PE: Constitutional: Well developed, well nourished, mild acute distress, non-toxic appearance. [] HENT: Normocephalic, atraumatic, bilateral external ears normal, oropharynx moist, no oral exudates, nose normal. [] Eyes: PERRLA, EOMI, conjunctiva normal, no discharge. [] Neck: Normal range of motion, no tenderness, supple, no stridor. [] Cardiovascular:Heart rate regular rhythm, no murmur [] Lungs & Thorax: Bilateral breath sounds clear to auscultation [] Abdomen: Bowel sounds normal, soft, diffuse tenderness without rigidity or guarding, no masses, no pulsatile masses. [] Skin: Warm, dry, no erythema, no rash. [] Back: No tenderness, no CVA tenderness. [] Extremities: No tenderness, no cyanosis, no clubbing, ROM intact, no edema. [] Neurologic: Alert and oriented X 3, normal motor function, normal sensory function, no focal deficits noted. [] Psychologic: Affect normal, judgement normal, mood concerned. [] EKG: EKG: [] Radiology/Procedures: Radiology/Procedures: [] Impressions: CT ABDOMEN PELVIS WO CONTRAST INDICATION: Reason: severe abdominal pain, +preg, US yesterday / Spl. Instructions: / History: EXAM: Noncontrast CT of the abdomen and pelvis. Coronal and sagittal reformatted images were performed. PQRS compliance statement: One or more of the following individualized dose reduction techniques were utilized for this examination: 1. Automated exposure control 2. Adjustment of the mA and/or kV according to patient size 3. Use of iterative reconstruction technique COMPARISON: CT 04/15/2018. OB ultrasound 01/16/2020. FINDINGS: No free air, free fluid, or fluid collection. Lower chest: The visualized lower lungs are aerated. No pleural or pericardial effusion. ABDOMEN: Liver: The noncontrast liver is homogeneous in attenuation. Gallbladder and biliary: Normal gallbladder without radiopaque stone. Normal caliber bile ducts. Spleen: Normal spleen. Pancreas: The noncontrast pancreas is homogeneous in attenuation without peripancreatic inflammatory changes. Adrenal glands: Normal adrenal glands. Kidneys and ureters: Nonobstructive right renal calculus measuring 0.3 cm. No hydronephrosis. GI tract: The stomach is decompressed and poorly evaluated. Normal caliber small bowel and colon. Moderate colonic stool burden. Normal appendix. Vascular structures: Normal caliber abdominal aorta. Lymph nodes: No lymphadenopathy in the abdomen or pelvis. PELVIS: Genitourinary system: Urinary bladder is decompressed. Enlarged gravid uterus, better evaluated on OB ultrasound 01/16/2020. SKELETAL STRUCTURES AND SOFT TISSUES: No fracture or destructive lesion in the visualized skeleton. IMPRESSION: 1. No acute findings. Moderate colonic stool burden, which may reflect constipation. 2. Enlarged gravid uterus, better evaluated on OB ultrasound 01/16/2020. 3. Nonobstructive right renal calculus measuring 3 mm. Electronically signed by: Davida Shah MD (01/17/2020 1:56 AM) [facility] DICTATED AND SIGNED BY: DAVIDA SHAH MD DATE: 01/17/20 0156 CC: XIN CHAUDHARI DO; ANTHONY GARY ~ Course & Med Decision Making: Course & Med Decision Making Pertinent Labs and Imaging studies reviewed. (See chart for details) The patient's labs are unremarkable. I have given her 2 mg of morphine and 4 mg of Zofran for her pain. I ordered a CT scan for the patient since she has had an ultrasound and is having worsening pain. She understands that there is some risk to the baby. This is a noncontrast CT. The patient CT scan is significant for and moderate stool volume. See official read for more details. I have advised that she consider a bowel cleanout to see if this improves her symptoms. She will continue to follow-up with OB as needed. Urinalysis is negative for infection. She is stable for discharge at this time. [] Dragon Disclaimer: Dragamena Disclaimer: This electronic medical record was generated, in whole or in part, using a voice recognition dictation system. Departure Departure: Impression: Primary Impression: Constipation during Qualified Codes: O99.611 - Diseases of the digestive system complicating , first trimester; K59.00 - Constipation, unspecified Disposition: 01 HOME/RESIDENCE PRIOR TO ADM Condition: STABLE Referrals: ANTHONY GARY (PCP) Patient Instructions: Constipation, Adult, [id number] Justification of Admission: Justification of Admission: Justification of Admission Dx: N/A XIN CHAUDHARI DO Jan 17, 2020 01:11
[2020-01-17] MEDS ORDERED: MORPHINE SULFATE 2 MG/ML DISP.SYRIN. IV ONE (01:15)
[2020-01-17] MEDS ORDERED: ONDANSETRON PF 4 MG/2 ML VIAL. IVP ONE (01:15)
[2020-01-17] MEDS ORDERED: IV NORMAL SALINE 1,000ML 1,000 ML IV ONE (01:15)
[2020-01-17 01:25] LABS: BASO % 0 % (0-3); EOS % 0 % (0-3); HEMATOCRIT 40.6 % (36.0-47.0); HEMOGLOBIN 13.8 g/dL (12.0-15.5); LYMPH # 1.7 x10^3/uL (1.0-4.8); LYMPH % 14 % (24-48); MEAN CORPUSCULAR HEMOGLOBIN 31 pg (25-35); MEAN CORPUSCULAR HGB CONC 34 g/dL (31-37); MEAN CORPUSCULAR VOLUME 92 fL (79-100); MONO # 0.5 x10^3/uL (0.0-1.1); MONO % 4 % (0-9); NEUT # 9.6 x10^3uL (1.8-7.7); NEUT % 81 % (31-73); PLATELET COUNT 210 x10^3/uL (140-400); RED BLOOD COUNT 4.41 x10^6/uL (3.50-5.40); RED CELL DISTRIBUTION WIDTH 12.9 % (11.5-14.5); WHITE BLOOD COUNT 11.9 x10^3/uL (4.0-11.0)
[2020-01-17 01:34] LABS: CALCIUM 8.7 mg/dL (8.5-10.1); CREATININE 0.7 mg/dL (0.6-1.0); GFR 101.1; POTASSIUM 3.5 mmol/L (3.5-5.1)
[2020-01-17 01:35] LABS: BILIRUBIN,URINE NEG (NEG); CLARITY,URINE CLEAR; COLOR,URINE YELLOW; GLUCOSE,URINE NEG (NEG)
[2020-01-17 01:36] LABS: BACTERIA,URINE FEW /HPF (0-FEW); NITRITE,URINE NEG (NEG); RBC,URINE 0 /HPF (0-2); SQUAMOUS EPITHELIAL CELL,UR FEW /LPF; UROBILINOGEN,URINE 0.2 mg/dL (0.2 mg/dL)
[2020-01-17 01:40] LABS: ALBUMIN 3.9 g/dL (3.4-5.0); ALBUMIN/GLOBULIN RATIO 1.1 (1.0-1.7); TOTAL BILIRUBIN 0.4 mg/dL (0.2-1.0); TOTAL PROTEIN 7.3 g/dL (6.4-8.2)
--- NOTE | 2020-01-17 01:59 | RAD ---
CT ABDOMEN PELVIS WO CONTRAST INDICATION: Reason: severe abdominal pain, +preg, US yesterday / Spl. Instructions: / History: EXAM: Noncontrast CT of the abdomen and pelvis. Coronal and sagittal reformatted images were performed. PQRS compliance statement: One or more of the following individualized dose reduction techniques were utilized for this examination: 1. Automated exposure control 2. Adjustment of the mA and/or kV according to patient size 3. Use of iterative reconstruction technique COMPARISON: CT 04/15/2018. OB ultrasound 01/16/2020. FINDINGS: No free air, free fluid, or fluid collection. Lower chest: The visualized lower lungs are aerated. No pleural or pericardial effusion. ABDOMEN: Liver: The noncontrast liver is homogeneous in attenuation. Gallbladder and biliary: Normal gallbladder without radiopaque stone. Normal caliber bile ducts. Spleen: Normal spleen. Pancreas: The noncontrast pancreas is homogeneous in attenuation without peripancreatic inflammatory changes. Adrenal glands: Normal adrenal glands. Kidneys and ureters: Nonobstructive right renal calculus measuring 0.3 cm. No hydronephrosis. GI tract: The stomach is decompressed and poorly evaluated. Normal caliber small bowel and colon. Moderate colonic stool burden. Normal appendix. Vascular structures: Normal caliber abdominal aorta. Lymph nodes: No lymphadenopathy in the abdomen or pelvis. PELVIS: Genitourinary system: Urinary bladder is decompressed. Enlarged gravid uterus, better evaluated on OB ultrasound 01/16/2020. SKELETAL STRUCTURES AND SOFT TISSUES: No fracture or destructive lesion in the visualized skeleton. IMPRESSION: 1. No acute findings. Moderate colonic stool burden, which may reflect constipation. 2. Enlarged gravid uterus, better evaluated on OB ultrasound 01/16/2020. 3. Nonobstructive right renal calculus measuring 3 mm. Electronically signed by: Maxx Jackson MD (01/17/2020 1:56 AM) [facility]
[2020-01-17 02:21] VITALS: BP 109/61
[2020-01-17] MEDS ORDERED: MAGNESIUM CITRATE 296 ML SOLUTION. PO ONE (02:45)
== END 2020-01-17 02:45 | disposition home or self-care (01) ==
LOC: ER 00:40
DX: O99.611 Diseases of the digestive system complicating pregnancy, first trimester (principal); K59.00 Constipation, unspecified; O21.9 Vomiting of pregnancy, unspecified; O23.41 Unspecified infection of urinary tract in pregnancy, first trimester; O99.331 Smoking (tobacco) complicating pregnancy, first trimester; Z3A.12 12 weeks gestation of pregnancy
CPT/HCPCS: 36415; 74176; 80053; 81001; 85025; 96361; 96374; 96375; 99284; J2270; J2405; J7030

== ENCOUNTER 2020-04-28 13:47 | Emergency (ER) | payer MEDICAID ==
[~2020-04-28] VITALS: Ht 165.1 cm; Wt 67.1 kg
--- NOTE | 2020-04-28 14:32 | PHYS DOC ---
Past History Past Medical History: Anxiety, Depression (KYRA HERRERA APRN) Past Surgical History: Other Additional Past Surgical Histo: RIGHT WRIST (KYRA HERRERA APRN) Smoking: Cigarettes Alcohol Use: Occasionally Drug Use: None (KYRA HERRERA APRN) Adult General Chief Complaint Chief Complaint: ABDOMINAL PAIN HPI HPI Patient is a 24-year female presents with abdominal and back pain. Patient reports she is 6 months , has followed up with her SHIPFITTER HELPER. As per she has some lower back pain as well as some lower abdominal cramping for the last 4 days, states it has continued to get little worse each day. She contacted her DRUG SAFETY PHYSICIAN office recently, have been found to have a UTI, had been given a prescription for medication she does not recall what it is, has been taking it as prescribed, however states the discomfort has continued. States she has had little nausea recently, has some Zofran at home but she has not had to take it. States no change in urination. Denies any vaginal bleeding, vaginal discharge. Does report she had passed her mucous plug during her approximately 2 to 3 weeks ago, had contacted her DRUG SAFETY PHYSICIAN, and was told to just rest and follow- up as needed. Patient does report she has a history of prior subchorionic hemorrhage during her early , she is a G3, P2. Sees Isabell Huang at [facility] as her DRUG SAFETY PHYSICIAN. (KYRA HERRERA APRN) Review of Systems Review of Systems Constitutional: Denies fever or chills [] Eyes: Denies change in visual acuity, redness, or eye pain [] HENT: Denies nasal congestion or sore throat [] Respiratory: Denies cough or shortness of breath [] Cardiovascular: No additional information not addressed in HPI [] GI: Reports abdominal pain, occasional nausea but denies vomiting. Denies low stools, denies diarrhea, denies constipation, reports he does take some MiraLAX as needed when she feels she has been constipated. [] : Denies dysuria or hematuria, does report she has been taking the antibiotic for a UTI, know what it is, other than a bicolor capsule she takes twice daily. Musculoskeletal: Reports lower back pain [] Integument: Denies rash or skin lesions [] Neurologic: Denies headache, focal weakness or sensory changes [] Endocrine: Denies polyuria or polydipsia [] All other systems were reviewed and found to be within normal limits, except as documented in this note. (KYRA HERRERA APRN) Allergies Allergies Allergies Coded Allergies Type Severity Reaction Last Updated Verified No Known Drug Allergies 03/22/17 No (KYRA HERRERA APRN) Physical Exam Physical Exam Constitutional: Well developed, well nourished, no acute distress, non-toxic appearance. [] HENT: Normocephalic, atraumatic, bilateral external ears normal, oropharynx moist, no oral exudates, nose normal. [] Eyes: PERRLA, EOMI, conjunctiva normal, no discharge. [] Neck: Normal range of motion, no tenderness, supple, no stridor. [] Cardiovascular:Heart rate regular rhythm, no murmur [] Lungs & Thorax: Bilateral breath sounds clear to auscultation [] Abdomen: Bowel sounds normal, soft, no tenderness, no masses, no pulsatile masses. Round, gravid abdomen [] Skin: Warm, dry, no erythema, no rash. [] Back: No tenderness, no CVA tenderness. No lesions noted [] Extremities: No tenderness, no cyanosis, no clubbing, ROM intact, no edema. [] Neurologic: Alert and oriented X 3, normal motor function, normal sensory function, no focal deficits noted. [] Psychologic: Affect normal, judgement normal, mood normal. [] (KYRA HERRERA APRN) Current Patient Data Vital Signs Vital Signs Date Time Temp Pulse Resp B/P (MAP) Pulse Ox O2 Delivery O2 Flow Rate FiO2 04/28/20 14:15 105 18 113/72 (86) 98 Room Air 04/28/20 13:53 98.7 (KYRA HERRERA APRN) EKG EKG [] (KYRA HERRERA APRN) Radiology/Procedures Radiology/Procedures PROCEDURE: OB LIMITED Exam: Ultrasound abdomen limited Indication: Abdominal cramping in Technique: Real-time grayscale and color Doppler images of the pelvis were obtained by the department furniture lumber production worker. Comparisons: None FINDINGS: There is a single live intrauterine gestation in breech presentation. heart rate measured at 150 bpm. measurements as follows: BPD: 6.5 corresponding to 26 weeks 2 days Head circumference: 23.9 cm corresponding to 26 weeks 0 days Abdominal circumference: 21.5 cm corresponding to 26 weeks 0 days Femur length: 4.7 cm corresponding to 25 weeks 4 days Estimated weight 858 g Visualized structures are normal. A full dedicated survey was not performed secondary to the emergent nature of the exam. Placenta is anterior and appears normal. RACHAEL measured at 13 cm. IMPRESSION: Single live intrauterine gestation with measurements as described above. Electronically signed by: Betty Albright MD (04/28/2020 3:50 PM) [facility] DICTATED AND SIGNED BY: BETTY ALBRIGHT MD DATE: 04/28/20 1550] (KYRA HERRERA APRN) Heart Score Risk Factors: Risk Factors: DM, Current or recent (<one month) smoker, HTN, HLP, family history of CAD, obesity. Risk Scores: Risk Factors: DM, Current or recent (<one month) smoker, HTN, HLP, family history of CAD, obesity. (KYRA HERRERA APRN) Course & Med Decision Making Course & Med Decision Making Pertinent Labs and Imaging studies reviewed. (See chart for details) [] Reviewed labs, urinalysis, ultrasound without acute abnormalities today. Fetus noted to be in breech position, likely putting additional pressure in lower abdomen, patient reports she is also was thinking the same thing, as her other pregnancies have been normal position however the swelling she is always felt is a little bit different. We recommend patient continue her antibiotics until finished, reports she has 2 days remaining. Patient will follow up with her DRUG SAFETY PHYSICIAN as scheduled (KYRA HERRERA APRN) Dragon Disclaimer Dragon Disclaimer This electronic medical record was generated, in whole or in part, using a voice recognition dictation system. (KYRA HERRERA APRN) Attending Signature I have participated in the care of this patient and I have reviewed and agree with all pertinent clinical information above including history, exam, and recommendations. (XIN CHAUDHARI DO) Departure Departure: Impression: Primary Impression: Pelvic pain affecting Disposition: 01 DC HOME SELF CARE/HOMELESS Condition: STABLE Referrals: ANTHONY GARY (PCP) Patient Instructions: Abdominal Pain During , [id number] Additional Instructions: As we discussed, continue to take your antibiotics for the remaining couple days, until they are finished. Continue to stay hydrated, drink plenty of water. Follow-up with your DRUG SAFETY PHYSICIAN in the next appointment. Continue to rest, as previously recommended. KYRA HERRERA APRN Apr 28, 2020 14:32 XIN CHAUDHARI DO Apr 29, 2020 18:18
[2020-04-28 15:05] LABS: BASO % 0 % (0-3); EOS % 1 % (0-3); HEMATOCRIT 36.4 % (36.0-47.0); HEMOGLOBIN 12.3 g/dL (12.0-15.5); LYMPH # 1.6 x10^3/uL (1.0-4.8); LYMPH % 16 % (24-48); MEAN CORPUSCULAR HEMOGLOBIN 31 pg (25-35); MEAN CORPUSCULAR HGB CONC 34 g/dL (31-37); MEAN CORPUSCULAR VOLUME 92 fL (79-100); MONO # 0.5 x10^3/uL (0.0-1.1); MONO % 6 % (0-9); NEUT # 7.3 x10^3uL (1.8-7.7); NEUT % 77 % (31-73); PLATELET COUNT 178 x10^3/uL (140-400); RED BLOOD COUNT 3.96 x10^6/uL (3.50-5.40); RED CELL DISTRIBUTION WIDTH 12.8 % (11.5-14.5); WHITE BLOOD COUNT 9.5 x10^3/uL (4.0-11.0)
[2020-04-28 15:12] LABS: CALCIUM 8.3 mg/dL (8.5-10.1); CREATININE 0.6 mg/dL (0.6-1.0); GFR 120.8; POTASSIUM 3.6 mmol/L (3.5-5.1)
[2020-04-28 15:18] LABS: ALBUMIN/GLOBULIN RATIO 0.9 (1.0-1.7); TOTAL BILIRUBIN 0.2 mg/dL (0.2-1.0); TOTAL PROTEIN 6.3 g/dL (6.4-8.2)
[2020-04-28 15:25] LABS: BILIRUBIN,URINE NEG (NEG); CLARITY,URINE CLEAR; COLOR,URINE YELLOW; GLUCOSE,URINE NEG (NEG); NITRITE,URINE NEG (NEG)
[2020-04-28 15:26] LABS: BACTERIA,URINE 0 /HPF (0-FEW); RBC,URINE 0 /HPF (0-2); SQUAMOUS EPITHELIAL CELL,UR MANY /LPF; WBC,URINE 0 /HPF (0-4)
--- NOTE | 2020-04-28 15:53 | RAD ---
Exam: Ultrasound abdomen limited Indication: Abdominal cramping in Technique: Real-time grayscale and color Doppler images of the pelvis were obtained by the department solar business developer. Comparisons: None FINDINGS: There is a single live intrauterine gestation in breech presentation. heart rate measured at 150 bpm. measurements as follows: BPD: 6.5 corresponding to 26 weeks 2 days Head circumference: 23.9 cm corresponding to 26 weeks 0 days Abdominal circumference: 21.5 cm corresponding to 26 weeks 0 days Femur length: 4.7 cm corresponding to 25 weeks 4 days Estimated weight 858 g Visualized structures are normal. A full dedicated survey was not performed secondary to the emergent nature of the exam. Placenta is anterior and appears normal. RACHAEL measured at 13 cm. IMPRESSION: Single live intrauterine gestation with measurements as described above. Electronically signed by: Betty Marquis MD (04/28/2020 3:50 PM) [facility]
[2020-04-28 16:40] VITALS: BP 99/59
== END 2020-04-28 16:43 | disposition home or self-care (01) ==
LOC: ER 13:47
DX: O26.892 Other specified pregnancy related conditions, second trimester (principal); R10.2 Pelvic and perineal pain; M54.5 Low back pain; O23.42 Unspecified infection of urinary tract in pregnancy, second trimester; O99.332 Smoking (tobacco) complicating pregnancy, second trimester; Z3A.26 26 weeks gestation of pregnancy
CPT/HCPCS: 36415; 76815; 80053; 81001; 85025; 99284

== ENCOUNTER 2021-01-22 17:55 | Emergency (ER) | payer MEDICAID ==
[~2021-01-22] VITALS: Ht 165.1 cm; Wt 67.1 kg
--- NOTE | 2021-01-22 17:58 | PHYS DOC ---
Past History Past Medical History: Anxiety, Depression Past Surgical History: Other Additional Past Surgical Histo: RIGHT WRIST Smoking: Cigarettes Alcohol Use: Occasionally Drug Use: None General Adult HPI: HPI: "..This same wrist I had a repair on in the past.. I got it cut on some sharp metal.. as I was protecting my daughter... but for past couple weeks.. it gotten .. more tender.. " Patient is a 25 year old female who presents with above hx and complaints of Rt. wrist injury/pain. Patient denies any specific injury. Patient has had a Z- plasty repair of tendons in 2016. Patient does have findings of tinel sign. There is some loss of sensation of the palmar sides of fingers 5 and 4. From previous injury. Patient does do a lot of typing job. Patient states pain seems to be worse at night. Pt. follows with Dr. Gary . No history of travel. No history immunosuppression. No history of significant ill contacts. Review of Systems: Review of Systems: Constitutional: Denies fever or chills Eyes: Denies change in visual acuity HENT: Denies nasal congestion or sore throat Respiratory: Denies cough or shortness of breath Cardiovascular: Denies chest pain or edema GI: Denies abdominal pain, nausea, vomiting, bloody stools or diarrhea : Denies dysuria Musculoskeletal: Complains of right wrist pain Integument: Denies rash Neurologic: Denies headache, focal weakness or sensory changes Endocrine: Denies polyuria or polydipsia Lymphatic: Denies swollen glands Psychiatric: Denies depression or anxiety Family History: Family History: Noncontributory to presentation Current Medications: Current Meds: See nursing for home meds Allergies: Allergies: Allergies Coded Allergies Type Severity Reaction Last Updated Verified No Known Drug Allergies 03/22/17 No Physical Exam: PE: Constitutional: Well developed, well nourished, moderate acute distress, non- toxic appearance. [] HENT: Normocephalic, atraumatic, bilateral external ears normal, oropharynx moist, no oral exudates, nose normal. [] Eyes: PERRLA, EOMI, conjunctiva normal, no discharge. [] Neck: Normal range of motion, no tenderness, supple, no stridor. [] Cardiovascular:Heart rate regular rhythm, no murmur [] Lungs & Thorax: Bilateral breath sounds clear to auscultation [] Abdomen: Bowel sounds normal, soft, no tenderness, no masses, no pulsatile masses. [] Skin: Warm, dry, no erythema, no rash. [] Back: No tenderness, no CVA tenderness. [] Extremities: No tenderness, no cyanosis, no clubbing, ROM intact, no edema. Right wrist pain complaints as per HPI Neurologic: Alert and oriented X 3, normal motor function, normal sensory function, no focal deficits noted. [] Psychologic: Affect normal, judgement normal, mood normal. [] EKG: EKG: [] Radiology/Procedures: Radiology/Procedures: My interpretation of x-ray shows no acute fracture or dislocation. Findings of previous surgery. [] Heart Score: C/O Chest Pain: N/A Risk Factors: Risk Factors: DM, Current or recent (<one month) smoker, HTN, HLP, family history of CAD, obesity. Risk Scores: Score 0 - 3: 2.5% MACE over next 6 weeks - Discharge Home Score 4 - 6: 20.3% MACE over next 6 weeks - Admit for Clinical Observation Score 7 - 10: 72.7% MACE over next 6 weeks - Early Invasive Strategies Course & Med Decision Making: Course & Med Decision Making Pertinent Labs and Imaging studies reviewed. (See chart for details) Ice packs as needed. Wear wrist splints. Follow-up primary care. Follow-up [facility] at [phone]. Tylenol and ibuprofen for pain. Impression: 1. Carpal tunnel syndrome [] Dragon Disclaimer: Dragon Disclaimer: This electronic medical record was generated, in whole or in part, using a voice recognition dictation system. Departure Departure: Referrals: ANTHONY GARY (PCP) JOSEFA ROTH MD Jan 22, 2021 17:58
[2021-01-22 18:03] VITALS: BP 120/77
--- NOTE | 2021-01-22 18:53 | RAD ---
XR RT WRIST 3VIEWS 01/22/2021 6:13 PM INDICATION: Pain, no injury COMPARISON: None available. TECHNIQUE: 3 views of the right wrist are provided. FINDINGS/ IMPRESSION: There is no acute fracture or dislocation. Joint spaces are maintained. Bone mineralization is within normal limits. Regional soft tissues are within normal limits. There is no soft tissue gas or osseou s erosion. No radiopaque foreign body. Electronically signed by: Lauren Ely MD (01/22/2021 6:51 PM) [facility]
== END 2021-01-22 18:53 | disposition home or self-care (01) ==
LOC: ER 17:55
DX: G56.01 Carpal tunnel syndrome, right upper limb (principal); F17.210 Nicotine dependence, cigarettes, uncomplicated
CPT/HCPCS: 29125; 73110; 99283

== ENCOUNTER 2021-08-28 13:50 | Emergency (ER) | payer MEDICAID ==
[~2021-08-28] VITALS: Ht 165.1 cm; Wt 71.8 kg
[2021-08-28] MEDS ORDERED: PENI500T PO (14:45)
[2021-08-28] MEDS ORDERED: HYDR-2155 PO (14:45)
[2021-08-28] MEDS ORDERED: HYDROcodone/APAP 5/325MG 1 TAB TABLET PO ONE (14:45)
--- NOTE | 2021-08-28 14:50 | PHYS DOC ---
Past History Past Medical History: Anxiety, Depression Additional Past Medical Histor: "being tested for chrons" (JAE ZIMMER APRN) Past Surgical History: Tubal ligation Additional Past Surgical Histo: RT WRIST (JAE ZIMMER APRN) Smoking: Cigarettes Alcohol Use: None Drug Use: None (JAE ZIMMER APRN) General Adult EDM: Chief Complaint: DENTAL PROBLEM HPI: HPI: Patient is a 26-year-old female who presents to the emergency department for right lower molar pain. Patient reports that she has had dental pain for the last 2 to 3 weeks she does have a cavity in that area. Patient reports that she was chewing gum today and she noticed that when she was chewing she did crack a piece off of her tooth. Patient rates her pain 6 out of 10. Patient has a dental appointment next week. Patient denies any treatment prior to arrival. Patient reports that she cannot take ibuprofen and Tylenol does not help with her pain. Patient denies any nausea, vomiting, fevers, difficulty swallowing. (JAE ZIMMER APRN) Review of Systems: Review of Systems: Constitutional: negative unless reported in HPI Eyes: negative unless reported in HPI HENT: negative unless reported in HPI Respiratory: negative unless reported in HPI Cardiovascular: negative unless reported in HPI GI: negative unless reported in HPI : negative unless reported in HPI Musculoskeletal: negative unless reported in HPI Integument: negative unless reported in HPI Neurologic: negative unless reported in HPI Endocrine: negative unless reported in HPI Lymphatic: negative unless reported in HPI Psychiatric: negative unless reported in HPI (JAE ZIMMER APRN) Allergies: Allergies: Allergies Coded Allergies Type Severity Reaction Last Updated Verified No Known Drug Allergies 03/22/17 No (JAE ZIMMER APRN) Physical Exam: PE: Constitutional: Well developed, well nourished, no acute distress, non-toxic appearance. [] HENT: Normocephalic, atraumatic, bilateral external ears normal, oropharynx moist, dull caries noted to the 31st tooth with a corner of the tooth missing, no swelling or erythema noted, no facial swelling, uvula midline, no trismus, no phonation changes no oral exudates, nose normal. [] Eyes: PERRL, EOMI, conjunctiva normal, no discharge. [] Neck: Normal range of motion, no tenderness, supple, no stridor. [] Cardiovascular: Normal peripheral perfusion Lungs & Thorax: Normal work of breathing, no tachypnea Abdomen: Soft and flat Skin: Warm, dry, no erythema, no rash. [] Back: Normal range of motion Extremities: No tenderness, no cyanosis, no clubbing, ROM intact, no edema. [] Neurologic: Alert and oriented X 3, normal motor function, normal sensory function, no focal deficits noted. [] Psychologic: Affect normal, judgement normal, mood normal. [] (JAE ZIMMER APRN) Current Patient Data: Vital Signs: Vital Signs Date Time Temp Pulse Resp B/P (MAP) Pulse Ox O2 Delivery O2 Flow Rate FiO2 08/28/21 14:00 98.4 85 18 123/76 (92) (JAE ZIMMER APRN) EKG: EKG: [] (JAE ZIMMER APRN) Radiology/Procedures: Radiology/Procedures: [] (JAE ZIMMER APRN) Heart Score: C/O Chest Pain: N/A Risk Factors: Risk Factors: DM, Current or recent (<one month) smoker, HTN, HLP, family history of CAD, obesity. Risk Scores: Score 0 - 3: 2.5% MACE over next 6 weeks - Discharge Home Score 4 - 6: 20.3% MACE over next 6 weeks - Admit for Clinical Observation Score 7 - 10: 72.7% MACE over next 6 weeks - Early Invasive Strategies (JAE ZIMMER APRN) Course & Med Decision Making: Course & Med Decision Making Pertinent Labs and Imaging studies reviewed. (See chart for details) [] Presents to the emergency department today for dental pain. Patient does have dental caries and reports that she cracked a quarter off of her tooth while chewing gum today. Patient does have dental caries. She will be treated with pain medication and antibiotic. Advised to follow-up with her dentist. I discussed with patient all findings and diagnostic testing as well as the need to follow-up with PCP for further evaluation and treatment or return to the ER if any new or worsening symptoms. Strict return precautions were also discussed at length. Patient voiced understanding and agreement with the plan. Patient is hemodynamically stable at the time of disposition. (JAE ZIMMER APRN) Course & Med Decision Making I was the Attending physician on the above date of service of this patient. This patient was evaluated, examined, treated, and dispositioned from the emergency department by the mid-level practitioner. Although I was working at the time , no assistance was requested. Electronically signed, Homero Bains DO (HOMERO BAINS DO) Siddhartha Disclaimer: Siddhartha Disclaimer: This electronic medical record was generated, in whole or in part, using a voice recognition dictation system. (JAE ZIMMER APRN) Departure Departure: Impression: Primary Impression: Pain, dental Disposition: HOME / SELF CARE / HOMELESS Condition: GOOD Referrals: ANTHONY GARY (PCP) Patient Instructions: Dental Injury, Dental Pain Additional Instructions: You are seen in the emergency department today for dental pain. You are treated with pain medication in the emergency department. You are being discharged home with pain medication. This medication is hydrocodone and Tylenol combination tablet. This medication may cause sedation so do not take needs to be alert, driving a vehicle with alcohol. Do not take any additional Tylenol with this medication. You are also being discharged home with an antibiotic. Please start and finish it. Follow-up with your dentist as previously scheduled. Return to the emergency department if you develop worsening of your pain, facial swelling, high fevers refractory to treatment, tractable nausea vomiting, inability to swallow, shortness of breath. Scripts Penicillin V Potassium (PENICILLIN V POTASSIUM) 500 Mg Tablet 1 TAB PO QID for INFECTION for 10 Days, #40 TAB 0 Refills Prov: JAE ZIMMER APRN 08/28/21 Hydrocodone Bit/Acetaminophen (HYDROCODONE-APAP 5-325 ) 1 Each Tablet 1 TAB PO PRN Q6HRS PRN for PAIN for 2 Days, #8 TAB 0 Refills Prov: JAE ZIMMER APRN 08/28/21 JAE ZIMMER APRN Aug 28, 2021 14:50 HOMERO BAINS DO Aug 29, 2021 07:59
[2021-08-28] MEDS ORDERED: ONDANSETRON ODT 4 MG TAB.RAPDIS ONE (14:56)
[2021-08-28] MEDS ORDERED: ONDANSETRON ODT 4 MG TAB.RAPDIS PO ONE (15:00)
[2021-08-28 15:40] VITALS: BP 117/77
== END 2021-08-28 15:44 | disposition home or self-care (01) ==
LOC: ER 13:54
DX: K02.9 Dental caries, unspecified (principal); F17.210 Nicotine dependence, cigarettes, uncomplicated
CPT/HCPCS: 99283; Q0162

== ENCOUNTER 2021-09-13 12:25 | Emergency (ER) | payer MEDICAID ==
[~2021-09-13] VITALS: Ht 165.1 cm; Wt 71.8 kg
[~2021-09-13 12:25] MED LIST changes: +HYDR-2155 PO; +PENI500T PO
[2021-09-13 12:42] VITALS: BP 124/74
[2021-09-13] MEDS ORDERED: IV NORMAL SALINE 1,000ML 1,000 ML IV ONE (13:00)
[2021-09-13] MEDS ORDERED: ONDANSETRON PF 4 MG/2 ML VIAL. IVP ONE (13:00)
[2021-09-13] MEDS ORDERED: MORPHINE SULFATE 4 MG/ML DISP.SYRIN. IV ONE (13:00)
--- NOTE | 2021-09-13 13:04 | PHYS DOC ---
Past History Past Medical History: Anxiety, Depression Additional Past Medical Histor: "being tested for chrons" Past Surgical History: Tubal ligation, Other Additional Past Surgical Histo: RT WRIST Smoking: Cigarettes Alcohol Use: None Drug Use: None General Adult EDM: Chief Complaint: MULTIPLE COMPLAINTS HPI: HPI: 26-year-old female presents with abscess of the left face and abdominal pain. Patient had a large pimple 2 days ago on the left side of her face. She drained pus and blood out of it. She still has facial swelling and she is not sure if it is getting bigger again. She had to have an I&D on the other side of her face in the past. She would like to avoid that at this time. She also presents with 2-day history of epigastric abdominal pain. Patient has been told in the past that she has gallstones but they are just monitoring them. Yesterday and today the patient has had intermittent, cramping, epigastric abdominal pain that comes and goes but does not go away. She has not had episodes last this long. She has been trying to eat very basic foods and just drink water. Her pain today is better than last night. Patient denies fever or chills. She did start taking some penicillin that she had leftover for her facial abscess. She started those pills yesterday. Review of Systems: Review of Systems: Constitutional: Denies fever or chills Eyes: Denies change in visual acuity HENT: Denies nasal congestion or sore throat Respiratory: Denies cough or shortness of breath Cardiovascular: Denies chest pain or edema GI: Epigastric abdominal pain. Denies nausea, vomiting, bloody stools or diarrhea : Denies dysuria Musculoskeletal: Denies back pain or joint pain Integument: Cellulitis/abscess left face Neurologic: Denies headache, focal weakness or sensory changes Endocrine: Denies polyuria or polydipsia Lymphatic: Denies swollen glands Psychiatric: Denies depression or anxiety Allergies: Allergies: Allergies Coded Allergies Type Severity Reaction Last Updated Verified No Known Drug Allergies 03/22/17 No Physical Exam: PE: Constitutional: Well developed, well nourished, no acute distress, non-toxic appearance. [] HENT: Normocephalic, atraumatic, bilateral external ears normal, oropharynx moist, no oral exudates, nose normal. [] Eyes: PERRLA, EOMI, conjunctiva normal, no discharge. [] Neck: Normal range of motion, no tenderness, supple, no stridor. [] Cardiovascular: Heart rate regular rhythm, no murmur [] Lungs & Thorax: Bilateral breath sounds clear to auscultation [] Abdomen: Bowel sounds normal, soft, epigastric and periumbilical tenderness, no masses, no pulsatile masses. [] Skin: Erythematous firm area of the left cheek without palpable abscess, evidence of recent spontaneous drainage. [] Back: No tenderness, no CVA tenderness. [] Extremities: No tenderness, no cyanosis, no clubbing, ROM intact, no edema. [] Neurologic: Alert and oriented X 3, normal motor function, normal sensory function, no focal deficits noted. [] Psychologic: Affect normal, judgement normal, mood anxious. [] Current Patient Data: Vital Signs: Vital Signs Date Time Temp Pulse Resp B/P (MAP) Pulse Ox O2 Delivery O2 Flow Rate FiO2 09/13/21 12:42 98.2 94 18 124/74 (91) 99 EKG: EKG: [] Radiology/Procedures: Radiology/Procedures: [] Impressions: CT ABDOMEN+PELVIS W History: epigastric pain Comparison: 06/15/2021 Technique: After administration of intravenous contrast, helical CT of the abdomen and pelvis was performed from the lung bases through the ischial tuberosities. Coronal and sagittal reconstructions were obtained. 75 mL of Omnipaque 300 were used. One or more of the following dose reduction techniques were utilized: Automated exposure control (AEC), Adjustment of mA and/or kV according to patient size, Use of iterative reconstruction technique such as ASiR, CT scan done according to ALARA and image gently/image wisely Abdomen Findings: The visualized lung bases are clear. The liver, gallbladder, pancreas, spleen, and bilateral adrenal glands are normal. Symmetric renal enhancement. Nonobstructive right renal 4 mm calculus. There is no hydronephrosis. Distal small bowel wall thickening and mucosal hyperemia. The visualized loops of large bowel are normal. There is no evidence of bowel obstruction. Appendix is normal. There is no free fluid. There is no mesenteric or retroperitoneal adenopathy. The abdominal aorta is normal in caliber. Pelvis Findings: Urinary bladder is decompressed. Uterus is present. Mild pelvic free fluid. There is no pelvic or inguinal adenopathy. There is no acute bony abnormality. IMPRESSION: 1. Distal small bowel wall thickening and mucosal hyperemia, likely an infectious or inflammatory enteritis. 2. Nonobstructive right renal 4 mm calculus. Electronically signed by: Davida Shah MD (09/13/2021 2:59 PM) [facility] DICTATED AND SIGNED BY: DAVIDA SHAH MD DATE: 09/13/21 1455 CC: XIN CHAUDHARI DO; ANTHONY GARY ~MTH0 0 Heart Score: C/O Chest Pain: N/A Risk Factors: Risk Factors: DM, Current or recent (<one month) smoker, HTN, HLP, family history of CAD, obesity. Risk Scores: Score 0 - 3: 2.5% MACE over next 6 weeks - Discharge Home Score 4 - 6: 20.3% MACE over next 6 weeks - Admit for Clinical Observation Score 7 - 10: 72.7% MACE over next 6 weeks - Early Invasive Strategies Course & Med Decision Making: Course & Med Decision Making Pertinent Labs and Imaging studies reviewed. (See chart for details) CT of the abdomen pelvis shows distal small bowel thickening inflammation likely enteritis. I will treat the patient with Augmentin for 7 days. Patient has already been given 1 g of Rocephin in the emergency room for her facial cellulitis. I will add Bactrim for additional cellulitis coverage. [] Dragon Disclaimer: Dragon Disclaimer: This electronic medical record was generated, in whole or in part, using a voice recognition dictation system. Departure Departure: Impression: Primary Impression: Facial cellulitis Additional Impression: Enteritis Disposition: HOME / SELF CARE / HOMELESS Condition: STABLE Referrals: ANTHONY GARY (PCP) Patient Instructions: Cellulitis, [id number] Scripts Sulfamethoxazole/Trimethoprim (BACTRIM DS TABLET) 1 Each Tablet 1 TAB PO BID for cellulitis for 7 Days, #14 TAB 0 Refills Prov: XIN CHAUDHARI DO 09/13/21 Amoxicillin/Potassium Clav (AMOX TR-K CLV 875-125 MG TAB) 1 Each Tablet 1 TAB PO BID for enteritis for 7 Days, #14 TAB Prov: XIN CHAUDHARI DO 09/13/21 XIN CHAUDHARI DO Sep 13, 2021 13:04
[2021-09-13] MEDS ORDERED: IV NORMAL SALINE 50ML 50 ML ONE (13:08)
[2021-09-13] MEDS ORDERED: cefTRIAXone SODIUM 1 GM VIAL ONE (13:09)
[2021-09-13 13:24] LABS: BASO % 0 % (0-3); EOS # 0.1 x10^3/uL (0.0-0.7); EOS % 1 % (0-3); HEMATOCRIT 44.1 % (36.0-47.0); HEMOGLOBIN 14.7 g/dL (12.0-15.5); LYMPH # 1.6 x10^3/uL (1.0-4.8); LYMPH % 20 % (24-48); MEAN CORPUSCULAR HEMOGLOBIN 30 pg (25-35); MEAN CORPUSCULAR HGB CONC 33 g/dL (31-37); MEAN CORPUSCULAR VOLUME 91 fL (79-100); MONO # 0.6 x10^3/uL (0.0-1.1); MONO % 7 % (0-9); NEUT # 5.7 x10^3uL (1.8-7.7); NEUT % 71 % (31-73); PLATELET COUNT 232 x10^3/uL (140-400); RED BLOOD COUNT 4.84 x10^6/uL (3.50-5.40)
[2021-09-13 13:33] LABS: CALCIUM 8.8 mg/dL (8.5-10.1); CREATININE 0.7 mg/dL (0.6-1.0); GFR 99.6; POTASSIUM 3.7 mmol/L (3.5-5.1)
[2021-09-13 13:39] LABS: ALBUMIN 4.1 g/dL (3.4-5.0); ALBUMIN/GLOBULIN RATIO 1.1 (1.0-1.7); TOTAL BILIRUBIN 0.4 mg/dL (0.2-1.0); TOTAL PROTEIN 7.8 g/dL (6.4-8.2)
[2021-09-13] MEDS ORDERED: IOHEXOL 300 MG/ML 75 ML VIAL. IV ONE (14:30)
--- NOTE | 2021-09-13 15:01 | RAD ---
CT ABDOMEN+PELVIS W History: epigastric pain Comparison: 06/15/2021 Technique: After administration of intravenous contrast, helical CT of the abdomen and pelvis was per formed from the lung bases through the ischial tuberosities. Coronal and sagittal reconstructions wer e obtained. 75 mL of Omnipaque 300 were used. One or more of the following dose reduction techniques were utilized: Automated exposure control (AEC), Adjustment of mA and/or kV according to patient size , Use of iterative reconstruction technique such as ASiR, CT scan done according to ALARA and image g ently/image wisely Abdomen Findings: The visualized lung bases are clear. The liver, gallbladder, pancreas, spleen, and bilateral adrenal glands are normal. Symmetric renal enhancement. Nonobstructive right renal 4 mm calculus. There is no hydronephrosis. Distal small bowel wall thickening and mucosal hyperemia. The visualized loops of large bowel are nor mal. There is no evidence of bowel obstruction. Appendix is normal. There is no free fluid. There is no mesenteric or retroperitoneal adenopathy. The abdominal aorta is normal in caliber. Pelvis Findings: Urinary bladder is decompressed. Uterus is present. Mild pelvic free fluid. There is no pelvic or ing uinal adenopathy. There is no acute bony abnormality. IMPRESSION: 1. Distal small bowel wall thickening and mucosal hyperemia, likely an infectious or inflammatory ent eritis. 2. Nonobstructive right renal 4 mm calculus. Electronically signed by: Maxx Jackson MD (09/13/2021 2:59 PM) [facility]
[2021-09-13 15:15] LABS: CLARITY,URINE CLEAR; COLOR,URINE YELLOW
[2021-09-13 15:16] LABS: GLUCOSE,URINE NEG (NEG)
[2021-09-13 15:18] LABS: NITRITE,URINE NEG (NEG); UROBILINOGEN,URINE 0.2 mg/dL (0.2 mg/dL)
[2021-09-13 15:20] LABS: BACTERIA,URINE FEW /HPF (0-FEW); SQUAMOUS EPITHELIAL CELL,UR FEW /LPF
[2021-09-13] MEDS ORDERED: SULF1TAB24 PO (15:28)
[2021-09-13] MEDS ORDERED: AMOX1TAB11 PO (15:28)
== END 2021-09-13 15:42 | disposition home or self-care (01) ==
LOC: ER 12:25
DX: L03.211 Cellulitis of face (principal); K52.9 Noninfective gastroenteritis and colitis, unspecified; F17.210 Nicotine dependence, cigarettes, uncomplicated
CPT/HCPCS: 36415; 74177; 80053; 81001; 81025; 83690; 85025; 87086; 96365; 96375; 99285; J0696; J2270; J2405; J7030; Q9967